=== PATIENT | female | born 1995 | race African-American/Black ===

== ENCOUNTER 2017-08-20 20:34 | Emergency (ER) | payer BC, OTHER ==
[2017-08-20 20:44] VITALS: BMI 34.3
--- NOTE | 2017-08-20 20:52 | PDOC ---
History of Present Illness - General History Source: Patient Exam Limitations: No Limitations - History of Present Illness Initial Comments: 08/20/17 21:47 The patient is a 22-year-old female with a significant past medical history of asthma, and presents to the emergency department with asthma exacerbation since yesterday. She reports difficulty breathing, coughing, chest tightness. She states her last episode of exacerbation was many years ago, but she uses a machine occasionally. She has never had prednisone treatment for her asthma. She denies any sick contacts. The patient denies chest pain, headache and dizziness. The patient denies fever , chills, nausea, vomit, diarrhea and constipation. The patient denies dysuria, frequency, urgency and hematuria. LMP: currently Allergies: NKDA Past Surgical History: None reported Social History: Former smoker (quit 1 month ago) PCP: Dr. Devan Aburto <Kathryn Albarran - Last Filed: 08/20/17 21:53> <Snehal Fofana - Last Filed: 08/21/17 00:47> - General Chief Complaint: Asthma Stated Complaint: S.O.B Time Seen by Provider: 08/20/17 20:52 Past History <Kathryn Albarran - Last Filed: 08/20/17 21:53> - Past Medical History Asthma: Yes - Surgical History Abdominal Surgery: Yes - Suicide/Smoking/Psychosocial Hx Smoking History: Never smoked Have you smoked in the past 12 months: No Information on smoking cessation initiated: No Hx Alcohol Use: No Drug/Substance Use Hx: No Substance Use Type: Alcohol <Snehal Fofana - Last Filed: 08/21/17 00:47> - Past Medical History Allergies/Adverse Reactions: Allergies Allergy/AdvReac Type Severity Reaction Status Date / Time No Known Allergies Allergy Verified 08/20/17 20:42 Home Medications: Ambulatory Orders Ibuprofen Oral Suspension [Motrin Oral Suspension -] 600 mg PO TID #105 ml 04/30 Loratadine [Claritin -] 10 mg PO DAILY #7 tablet 04/30/15 Azithromycin [Zithromax -] 250 mg PO DAILY #4 tablet 08/20/17 Review of Systems - Review of Systems Able to Perform ROS?: Yes Comments:: 08/20/17 21:47 GENERAL/CONSTITUTIONAL: No fever or chills. No weakness. HEAD, EYES, EARS, NOSE AND THROAT: No change in vision. No ear pain or discharge. No sore throat. CARDIOVASCULAR: No chest pain. RESPIRATORY: (+) Shortness of breath. (+) Cough. No hemoptysis. GASTROINTESTINAL: No nausea, vomiting, diarrhea or constipation. GENITOURINARY: No dysuria, frequency, or change in urination. MUSCULOSKELETAL: No joint or muscle swelling or pain. No neck or back pain. SKIN: No rash NEUROLOGIC: No headache, vertigo, loss of consciousness, or change in strength/ sensation. ENDOCRINE: No increased thirst. No abnormal weight change. HEMATOLOGIC/LYMPHATIC: No anemia, easy bleeding, or history of blood clots. ALLERGIC/IMMUNOLOGIC: No hives or skin allergy. <Kathryn Albarran - Last Filed: 08/20/17 21:53> *Physical Exam - Vital Signs Last Vital Signs Temp Pulse Resp BP Pulse Ox 99.3 F 97 H 20 144/74 97 08/20/17 20:42 08/20/17 20:42 08/20/17 20:42 08/20/17 20:42 08/20/17 20:42 - Physical Exam Comments: 08/20/17 21:53 GENERAL: Awake, alert, and fully oriented, in no acute distress. (+) Febrile. HEAD: No signs of trauma EYES: PERRLA, EOMI, sclera anicteric, conjunctiva clear ENT: Auricles normal inspection, hearing grossly normal, nares patent, oropharynx clear without exudates. Moist mucosa NECK: Normal ROM, supple, no lymphadenopathy, JVD, or masses LUNGS: (+) Wheezing in left lungs villanueva all throughout, right-sided patchy wheezing. No crackles HEART: Regular rate and rhythm, normal S1 and S2, no murmurs, rubs or gallops ABDOMEN: Soft, nontender, normoactive bowel sounds. No guarding, no rebound. No masses EXTREMITIES: Normal range of motion, no edema. No clubbing or cyanosis. No cords, erythema, or tenderness NEUROLOGICAL: Cranial nerves II through XII grossly intact. Normal speech, normal gait SKIN: Warm, Dry, normal turgor, no rashes or lesions noted. <Kathryn Albarran - Last Filed: 08/20/17 21:53> - Vital Signs Last Vital Signs Temp Pulse Resp BP Pulse Ox 99.3 F 97 H 20 144/74 97 08/20/17 20:42 08/20/17 20:42 08/20/17 20:42 08/20/17 20:42 08/20/17 20:42 <Snehal Fofana - Last Filed: 08/21/17 00:47> ED Treatment Course - Medications Given in the ED: ED Medications Discontinued Medications Generic Name Dose Route Start Last Admin Trade Name Porsha PRN Reason Stop Dose Admin Acetaminophen 650 mg 08/20/17 21:26 08/20/17 21:37 Tylenol - PO 08/20/17 21:27 650 mg ONCE ONE Administration Albuterol/Ipratropium 1 amp 08/20/17 21:36 08/20/17 21:05 Duoneb - NEB 08/20/17 21:37 1 amp ONCE ONE Administration Azithromycin 500 mg 08/20/17 21:26 08/20/17 21:37 Zithromax - PO 08/20/17 21:27 500 mg ONCE ONE Administration Dexamethasone 10 mg 08/20/17 21:26 08/20/17 21:37 Decadron Liquid - PO 08/20/17 21:27 10 mg ONCE ONE Administration <Kathryn Albarran - Last Filed: 08/20/17 21:53> Medical Decision Making - Medical Decision Making 08/21/17 00:44 Pt comes with cough and fever; she has asthma; CXR consistent with atypical pneumonia. I will treat with zithromax and decadron as well as duonebs; fever treated with tylenol. Pt is improved in the ER. <Snehal Fofana - Last Filed: 08/21/17 00:47> *DC/Admit/Observation/Transfer - Attestations Scribe Attestion: 08/20/17 21:48 Documentation prepared by Kathryn Albarran, acting as senior medical transcriptionist for Snehal Fofana MD. <Kathryn Albarran - Last Filed: 08/20/17 21:53> - Discharge Dispostion Admit: No <Snehal Fofana - Last Filed: 08/21/17 00:47> Diagnosis at time of Disposition: Asthma exacerbation, Atypical pneumonia - Discharge Dispostion Disposition: HOME Condition at time of disposition: Improved - Prescriptions Prescriptions: Azithromycin [Zithromax -] 250 mg PO DAILY #4 tablet - Referrals Referrals: Devan Aburto [Primary Care Provider] - - Patient Instructions Printed Discharge Instructions: Asthma -- Adult, DI for Pneumonia -- Adult - Post Discharge Activity Forms/Work/School Notes: Back to Work
[2017-08-20] MEDS ORDERED: ALBUTEROL SO4 2.5/IPRATROPIUM 0.5 INH SOL 3 ML VIAL.NEB. NEB ONE ×2 (21:09→21:36)
[2017-08-20] MEDS ORDERED: AZITHROMYCIN 250 MG TABLET PO ONE (21:26)
[2017-08-20] MEDS ORDERED: ACETAMINOPHEN 325 MG TABLET (FP) PO ONE (21:26)
[2017-08-20] MEDS ORDERED: DEXAMETHASONE LIQUID 0.5 MG/5 ML 240 ML BULK BOTTLE PO ONE (21:26)
[2017-08-20] MEDS ORDERED: DEXAMETHASONE SOD PHOSPHATE 10 MG/1 ML VIAL ONE (21:32)
[2017-08-20] MEDS ORDERED: AZITHROMYCIN 250 MG TABLET ONE (21:32)
[2017-08-20] MEDS ORDERED: ACETAMINOPHEN 325 MG TABLET (FP) ONE (21:32)
[2017-08-20 22:42] VITALS: BP 155/87; PULSE 92; TEMP 98.8
== END 2017-08-20 22:39 | disposition home or self-care (01) ==
LOC: JER 20:34
PROC: 3E0F7GC Introduction of Other Therapeutic Substance into Respiratory Tract, Via Natural or Artificial Opening (ICD-10-PCS; principal; 2017-08-20)
DX: J45.901 Unspecified asthma with (acute) exacerbation (principal); J18.8 Other pneumonia, unspecified organism
CPT/HCPCS: 71020-TC; 99282-25

== ENCOUNTER 2018-02-09 15:37 | Emergency (ER) | payer OTHER ==
[2018-02-09 15:44] VITALS: BP 137/85; PULSE 100; TEMP 98.1; BMI 33.3
[2018-02-09] MEDS ORDERED: ALBUTEROL SO4 2.5/IPRATROPIUM 0.5 INH SOL 3 ML VIAL.NEB. NEB ONE ×2 (15:44→16:21)
--- NOTE | 2018-02-09 15:45 | PDOC ---
Rapid Medical Evaluation Time Seen by Provider: 02/09/18 15:41 Medical Evaluation: Allergies Allergy/AdvReac Type Severity Reaction Status Date / Time No Known Allergies Allergy Verified 02/09/18 15:41 02/09/18 15:41 The patient presents with a chief complaint of: Unable to breath since yesterday. Worse today. Hx of asthma, using home inhaler with no relief. No recent illness or fevers, no sick contacts I have performed a brief in-person evaluation of this patient; Pertinent physical exam findings: ambulatory, in mild respiratory distress, audible expiratory wheezing. auscultation: expiratory wheezing in all lung villanueva I have ordered the following: Duoneb, cxr, urine preg The patient will proceed to the ED for further evaluation.
--- NOTE | 2018-02-09 16:18 | PDOC ---
History of Present Illness - General Chief Complaint: Asthma Stated Complaint: SOB (ASTHMA) Time Seen by Provider: 02/09/18 15:41 History Source: Patient Exam Limitations: No Limitations - History of Present Illness Initial Comments: 02/09/18 16:58 Came for evaluation of tightness and cough. Started this morning when she woke up and denies fever, ear or throat pain, Timing/Duration: reports: just prior to arrival Past History - Travel Traveled outside of the country in the last 30 days: No Close contact w/someone who was outside of country & ill: No - Past Medical History Allergies/Adverse Reactions: Allergies Allergy/AdvReac Type Severity Reaction Status Date / Time Fish Containing Products Allergy Verified 02/09/18 16:10 sea food Allergy Uncoded 02/09/18 15:44 Home Medications: Ambulatory Orders Albuterol Sulfate Inhaler - [Ventolin HFA Inhaler -] 1 - 2 inh PO Q4H #1 inhaler 02/09/18 Albuterol Sulfate Inhaler - [Ventolin Hfa Inhaler -] 1 - 2 inh PO QID 02/09/18 Fluticasone Prop 0.05% Nasal [Flonase -] 1 - 2 spray NS BID #1 spray.pump Asthma: Yes COPD: No - Surgical History Abdominal Surgery: Yes - Suicide/Smoking/Psychosocial Hx Smoking History: Never smoked Have you smoked in the past 12 months: No Information on smoking cessation initiated: No Hx Alcohol Use: No Drug/Substance Use Hx: No Substance Use Type: Alcohol Respiratory Specific PMHX - Complaint Specific PMHX Bronchitis: No Pneumonia: No Review of Systems - Review of Systems Able to Perform ROS?: Yes Is the patient limited Tamaz[place] proficient: Yes Constitutional: Yes: Symptoms Reported, See HPI, Malaise. No: Chills, Fever HEENTM: Yes: Symptoms Reported, See HPI, Nose Congestion. No: Difficulty Swallowing Respiratory: Yes: Symptoms reported, See HPI, Cough, Wheezing ABD/GI: Yes: See HPI, Nausea. No: Symptoms Reported Musculoskeletal: No: Symptoms Reported All Other Systems: Reviewed and Negative *Physical Exam - Vital Signs Last Vital Signs Temp Pulse Resp BP Pulse Ox 98.1 F 100 H 24 137/85 100 02/09/18 15:42 02/09/18 15:42 02/09/18 15:42 02/09/18 15:42 02/09/18 15:42 - Physical Exam General Appearance: Yes: Nourished, Appropriately Dressed, Apparent Distress, Mild Distress HEENT: positive: LIZ, Normal ENT Inspection, TMs Normal, Pharynx Normal, Nasal Congestion, Rhinorrhea Neck: positive: Supple. negative: Tender Respiratory/Chest: positive: Wheezing (tight inspiratory and expiratory breath sounds, ). negative: Lungs Clear, Normal Breath Sounds Cardiovascular: positive: Regular Rate Gastrointestinal/Abdominal: positive: Soft. negative: Tender Musculoskeletal: negative: Normal Inspection Extremity: positive: Normal Capillary Refill, Normal Inspection, Tender Integumentary: positive: Normal Color, Dry, Pale Neurologic: positive: granite cutter II-XII NML intact, Fully Oriented, Alert, Normal Mood/ Affect, Normal Response, Motor Strength 03/17 ED Treatment Course - ADDITIONAL ORDERS Additional order review: Laboratory Results 02/09/18 15:58 Urine HCG, Qual Positive - Medications Given in the ED: ED Medications Discontinued Medications Generic Name Dose Route Start Last Admin Trade Name Freq PRN Reason Stop Dose Admin Albuterol/Ipratropium 1 amp 02/09/18 15:44 02/09/18 15:46 Duoneb - NEB 02/09/18 15:45 1 amp ONCE ONE Administration Progress Note - Progress Note Progress Note: Newly , woke up this morning with asthma exacerbation. States denies fever, nasal drainage here pain or sore throat pain. States is uncertain as to cause of this asthma exacerbation but feels shortness of breath and tightness. *DC/Admit/Observation/Transfer Diagnosis at time of Disposition: Asthma exacerbation Qualifiers: Asthma severity: mild Asthma persistence: intermittent Qualified Code(s): J45.21 - Mild intermittent asthma with (acute) exacerbation - Discharge Dispostion Disposition: HOME Condition at time of disposition: Stable Admit: No - Prescriptions Prescriptions: Fluticasone Prop 0.05% Nasal [Flonase -] 1 - 2 spray NS BID #1 spray.pump - Referrals - Patient Instructions Printed Discharge Instructions: Asthma -- Adult Additional Instructions: Rest, drink lots of fluids: Teas, water, soups, Pedialyte Saltwater gargles Steamy showers/seem to face break up mucus Avoid contact with others until fevers and cough resolved Lots of handwashing and good hygiene Continue [id number] medications for symptomatic relief Tylenol or Motrin for fever and pain Continue albuterol nebulizers every 4-6 hours for the next 2 days then as needed for continued cough Flonase 2 puffs twice a day for 4 days then as needed Followup with private physician in one to 2 days Return to emergency department / pediatric hospital for worsened symptoms, fevers, dehydration - Post Discharge Activity Forms/Work/School Notes: Back to Work
== END 2018-02-09 17:04 | disposition home or self-care (01) ==
LOC: JERFT 15:37
PROC: 3E0F7GC Introduction of Other Therapeutic Substance into Respiratory Tract, Via Natural or Artificial Opening (ICD-10-PCS; principal; 2018-02-09)
PROC: 3E0F7GC Introduction of Other Therapeutic Substance into Respiratory Tract, Via Natural or Artificial Opening (ICD-10-PCS; 2018-02-09)
DX: J45.21 Mild intermittent asthma with (acute) exacerbation (principal)
CPT/HCPCS: 71046-TC-FY; 84703; 94640; 99281-25

== ENCOUNTER 2018-09-07 09:23 | Emergency (ER) | payer OTHER ==
[2018-09-07] MEDS ORDERED: DEXAMETHASONE SOD PHOSPHATE 10 MG/1 ML VIAL ONE (09:43)
[2018-09-07] MEDS ORDERED: ALBUTEROL SO4 2.5/IPRATROPIUM 0.5 INH SOL 3 ML VIAL.NEB. NEB ONE (09:43)
--- NOTE | 2018-09-07 09:50 | PDOC ---
History of Present Illness - General Chief Complaint: Asthma Stated Complaint: ASTHMA Time Seen by Provider: 09/07/18 09:37 History Source: Patient Exam Limitations: No Limitations - History of Present Illness Initial Comments: 09/07/18 09:50 23y F hx of asthma (no recent hospitalizations, on albuterol at home, typically uses 3x week) presents with cough/sob. The pt endorses having some dry, nonproductive cough on monday. Cough was mild, but sob/chest tightnes worsened last night. no significant improvement with home nebs. No fever/chills, no sputum prudution on cough, no sore throat, congestion, abd pain, n/v, diaprhoesis, palptiations, dizziness. Per EMS. pt received 2 combivents and 10mg of decadron. PMD no recent travel, hemoptysis, leg swelling. Past History - Past Medical History Allergies/Adverse Reactions: Allergies Allergy/AdvReac Type Severity Reaction Status Date / Time Fish Containing Products Allergy Verified 02/09/18 16:10 sea food Allergy Uncoded 02/09/18 15:44 Home Medications: Ambulatory Orders Albuterol Sulfate Inhaler - [Ventolin HFA Inhaler -] 1 - 2 inh PO Q4H #1 inhaler 02/09/18 Albuterol 0.083% Nebulizer Gi [Ventolin 0.083% Nebulizer Soln -] 1 neb NEB Q4H PRN #30 vial 09/07/18 Albuterol 0.083% Nebulizer Gi [Ventolin 0.083%] 1 neb NEB Q4H PRN 09/07/18 Albuterol Sulfate Inhaler - [Ventolin HFA Inhaler -] 1 - 2 inh PO Q4H PRN #1 inhaler 09/07/18 Asthma: Yes COPD: No - Surgical History Abdominal Surgery: Yes - Suicide/Smoking/Psychosocial Hx Smoking History: Never smoked Have you smoked in the past 12 months: No Hx Alcohol Use: No Drug/Substance Use Hx: No Substance Use Type: Alcohol Respiratory Specific PMHX - Complaint Specific PMHX Bronchitis: No Pneumonia: No Review of Systems - Review of Systems Able to Perform ROS?: Yes Comments:: 09/07/18 10:19 Constitutional - no reported Fever, Chills, HEENT: no reported vision changes, sore throat Respiratory: + cough, no reported sob, hemoptysis Cardiac: no reported chest pain, palpitations, light headedness, leg swelling Abd/GI: no reported abd pain, nausea, vomiting, blood per rectum, melena, diarrhea : no reported dysuria, frequency, discharge Musculskelatal - no reported back pain, joint swelling skin - no reported bruising, erythema, rash neurological: no reported headache, numbness, focal weakness, tingling, ataxia, hematologic: no reported easy bruising, easy bleeding *Physical Exam - Physical Exam Comments: 09/07/18 10:19 GENERAL: The patient is awake, alert, and fully oriented, Nontoxic - in no acute distress. HEAD: Normocephalic, atraumatic. EYES: extraocular movements intact, sclera anicteric, conjunctiva clear. ENT: Normal voice, Moist mucous membranes. NECK: Normal range of motion, supple LUNGS: Diminished breath sounds, scattered wheezing bilaterally, he can complete sentences come in no acute respiratory distress HEART: Regular rate and rhythm, normal S1 and S2 without murmur, rub or gallop. ABDOMEN: Soft, nontender, normoactive bowel sounds. No guarding, no rebound. . No CVA tenderness EXTREMITIES: Normal range of motion, no edema. No clubbing or cyanosis. No cords, erythema, or tenderness. NEUROLOGICAL: No facial assymetry, Normal speech, PSYCH: Normal mood, normal affect. SKIN: Warm, Dry, normal turgor, Medical Decision Making - Medical Decision Making 09/07/18 11:07 Suspect asthma exacerbation secondary to viral syndrome. No clinical signs or symptoms suggestive of pneumonia or pulmonary embolism She is feeling improved after nebulizers, patient was also status post Decadron by EMS. The patient is was ambulating the length of the ED without any shortness of breath, she remained satting at 98-100% on room air after ambulation. On repeat pulmonary exam she still has minimal wheezing however she has good lung excursion and great air movement. We'll discharge patient with albuterol and PMD follow-up. return precautions were discussed I discussed the physical exam findings, ancillary test results and final diagnoses with the patient. I answered all of the patient's questions. The patient was satisfied with the care received and felt comfortable with the discharge plan and treatment plan. The patient will call their primary care physician within 24 hours to arrange follow-up and will return to the Emergency Department with any new, persistent or worsening symptoms. *DC/Admit/Observation/Transfer Diagnosis at time of Disposition: Asthma exacerbation Qualifiers: Asthma severity: mild Asthma persistence: unspecified Qualified Code(s): J45.901 - Unspecified asthma with (acute) exacerbation - Discharge Dispostion Disposition: HOME Condition at time of disposition: Improved Decision to Admit order: No - Referrals Referrals: [facility] [Provider Group] - Patient Instructions Printed Discharge Instructions: Asthma -- Adult Additional Instructions: Return to the emergency department immediately with ANY new, persistent or worsening symptoms. You MUST call and follow up with your doctor tomorrow for further evaluation of your symptoms. Results were discussed with you. Please make sure your doctor reviews the results of your emergency evaluation. If you had any xrays during your visit, it was read preliminarily by myself, a Radiologist will review it and if there are any additional findings we will call you. Print Language: TELUGU - Post Discharge Activity
[2018-09-07] MEDS ORDERED: ALBUTEROL SO4 0.5 % INH SOLN 2.5 MG/0.5 ML VIAL.NEB. NEB ONE (09:52)
[2018-09-07 10:05] VITALS: TEMP 97.4; BMI 32.3
[2018-09-07] MEDS ORDERED: ALBUTEROL SO4 0.083% IH SOL 2.5 MG/3 ML VIAL.NEB. NEB ONE (10:10)
[2018-09-07 11:44] VITALS: BP 128/78; PULSE 108
== END 2018-09-07 11:30 | disposition home or self-care (01) ==
LOC: JER 09:23
PROC: 3E0F7GC Introduction of Other Therapeutic Substance into Respiratory Tract, Via Natural or Artificial Opening (ICD-10-PCS; principal; 2018-09-07)
DX: J45.901 Unspecified asthma with (acute) exacerbation (principal)
CPT/HCPCS: 94640; 99282-25

== ENCOUNTER 2018-11-23 03:46 | Emergency (ER) | payer OTHER ==
[2018-11-23 04:04] VITALS: TEMP 98.6; BMI 32.3
[2018-11-23] MEDS ORDERED: predniSONE 20 MG TABLET (UD) PO ONE (04:15)
[2018-11-23] MEDS ORDERED: ALBUTEROL SO4 2.5/IPRATROPIUM 0.5 INH SOL 3 ML VIAL.NEB. NEB ONE (04:19)
[2018-11-23] MEDS ORDERED: predniSONE 20 MG TABLET (UD) ONE (04:25)
[2018-11-23] MEDS: ALBUTEROL SO4 2.5/IPRATROPIUM 0.5 INH SOL 3 ML VIAL.NEB. NEB SCH ×2 (04:30→04:54)
--- NOTE | 2018-11-23 05:09 | PDOC ---
History of Present Illness - General Chief Complaint: Asthma Stated Complaint: ASTHMA Time Seen by Provider: 11/23/18 03:57 History Source: Patient Exam Limitations: No Limitations Past History - Past Medical History Allergies/Adverse Reactions: Allergies Allergy/AdvReac Type Severity Reaction Status Date / Time Fish Containing Products Allergy Verified 11/23/18 04:02 sea food Allergy Uncoded 11/23/18 04:02 Home Medications: Ambulatory Orders Albuterol Sulfate Inhaler - [Ventolin HFA Inhaler -] 1 - 2 inh PO Q4H #1 inhaler 02/09/18 Albuterol 0.083% Nebulizer Gi [Ventolin 0.083% Nebulizer Soln -] 1 neb NEB Q4H PRN #30 vial 09/07/18 Albuterol 0.083% Nebulizer Gi [Ventolin 0.083%] 1 neb NEB Q4H PRN 09/07/18 Albuterol Sulfate Inhaler - [Ventolin HFA Inhaler -] 1 - 2 inh PO Q4H PRN #1 inhaler 09/07/18 Albuterol 0.083% Nebulizer Gi [Ventolin 0.083% Nebulizer Soln -] 1 neb NEB Q4H #30 vial 11/23/18 Prednisone [Deltasone] 40 mg PO DAILY #10 tablet 11/23/18 Asthma: Yes COPD: No CHF: No - Surgical History Abdominal Surgery: Yes - Immunization History Immunization Up to Date: Yes - Suicide/Smoking/Psychosocial Hx Smoking History: Never smoked Have you smoked in the past 12 months: No If you are a former smoker, when did you quit?: X2 YEARS Information on smoking cessation initiated: No Hx Alcohol Use: No Drug/Substance Use Hx: No Substance Use Type: Alcohol Respiratory Specific PMHX - Complaint Specific PMHX Bronchitis: No Pneumonia: No *Physical Exam - Vital Signs Last Vital Signs Temp Pulse Resp BP Pulse Ox 98.6 F 117 H 28 H 110/66 94 L 11/23/18 04:02 11/23/18 04:02 11/23/18 04:02 11/23/18 04:02 11/23/18 04:02 - Physical Exam General Appearance: No: Apparent Distress Respiratory/Chest: positive: Wheezing (diffuse B/L). negative: Respiratory Distress, Accessory Muscle Use Cardiovascular: positive: Regular Rhythm Gastrointestinal/Abdominal: positive: Soft. negative: Tender Integumentary: positive: Normal Color Neurologic: positive: Fully Oriented, Alert, Normal Mood/Affect Moderate Sedation - Procedure Monitoring Vital Signs: Procedure Monitoring Vital Signs Temperature 98.6 F 11/23/18 04:02 Pulse Rate 117 H 11/23/18 04:02 Respiratory Rate 28 H 11/23/18 04:02 Blood Pressure 110/66 11/23/18 04:02 O2 Sat by Pulse Oximetry (%) 94 L 11/23/18 04:02 ED Treatment Course - Medications Given in the ED: ED Medications Discontinued Medications Generic Name Dose Route Start Last Admin Trade Name Freq PRN Reason Stop Dose Admin Albuterol/Ipratropium 1 amp 11/23/18 04:15 11/23/18 04:54 Duoneb - NEB 11/23/18 04:46 1 amp Q15M ANTONIO Administration Prednisone 60 mg 11/23/18 04:15 11/23/18 04:30 Deltasone - PO 11/23/18 04:16 60 mg ONCE ONE Administration Medical Decision Making - Medical Decision Making 23 y/o F hx of asthma (never intubated, hospitalized only as child) presents with SOB, chest tightness and wheezing x 3 days. Symptoms feel like her typical asthma. Patient was using her nebulizer but ran out of medication yesterday. Mentions change in weather usually precipitates her asthma. Denies fever, URI sxs, abd pain, n/v, swelling of extremities. Asthma exacerbation Patient given duonebs x3 and Prednisone; patient with marked improvement in wheezing after treatment Patient feeling better Stable for d/c 11/23/18 05:09 *DC/Admit/Observation/Transfer Diagnosis at time of Disposition: Asthma exacerbation Qualifiers: Asthma severity: unspecified severity Asthma persistence: unspecified Qualified Code(s): J45.901 - Unspecified asthma with (acute) exacerbation - Discharge Dispostion Disposition: HOME Condition at time of disposition: Improved Decision to Admit order: No - Prescriptions Prescriptions: Albuterol 0.083% Nebulizer Gi [Ventolin 0.083% Nebulizer Soln -] 1 neb NEB Q4H #30 vial Prednisone [Deltasone] 40 mg PO DAILY #10 tablet - Referrals - Patient Instructions Printed Discharge Instructions: Asthma -- Adult Additional Instructions: Thank you for choosing [facility]. It was a pleasure taking care of you. Use your albuterol nebulizer as needed to help with your asthma Take Prednisone daily as prescribed Follow-up with your PCP in 2-3 days. Return to the Emergency Department if your symptoms worsen or persist or have other concerning symptoms. - Post Discharge Activity
[2018-11-23 05:24] VITALS: BP 110/68; PULSE 66
== END 2018-11-23 05:23 | disposition home or self-care (01) ==
LOC: JER 03:46
PROC: 3E0F7GC Introduction of Other Therapeutic Substance into Respiratory Tract, Via Natural or Artificial Opening (ICD-10-PCS; principal; 2018-11-23)
DX: J45.901 Unspecified asthma with (acute) exacerbation (principal)
CPT/HCPCS: 99281-25

== ENCOUNTER 2018-12-21 07:58 | Emergency (ER) | payer OTHER ==
[2018-12-21 08:09] VITALS: TEMP 98.4; BMI 32.3
[2018-12-21] MEDS ORDERED: ALBUTEROL SO4 2.5/IPRATROPIUM 0.5 INH SOL 3 ML VIAL.NEB. NEB ONE ×2 (08:49→08:52)
[2018-12-21] MEDS ORDERED: predniSONE 20 MG TABLET (UD) PO ONE (08:49)
[2018-12-21] MEDS ORDERED: predniSONE 20 MG TABLET (UD) ONE (08:51)
--- NOTE | 2018-12-21 08:55 | PDOC ---
History of Present Illness - General Chief Complaint: Asthma Stated Complaint: ASTHMA Time Seen by Provider: 12/21/18 08:08 History Source: Patient Exam Limitations: No Limitations - History of Present Illness Initial Comments: Patient is a 23 y/o F currently 5 mos p/w asthma attack since 1 am. Was previously evaluated in ED for asthma in November, responded well to nebulizers and steroids. No h/o hospitalizations or intubations. Symptoms are typical for her asthma: chest tightness, wheezing, mild non-productive cough. No URI symptoms or sick contact, however Pt reports weather changes tend to induce asthma exacerbations. Received 4 albuterol nebs from EMS, reports improvement. On arrival HR 128, BP 158/69. 12/21/18 08:50 Past History - Travel Traveled outside of the country in the last 30 days: No Close contact w/someone who was outside of country & ill: No - Past Medical History Allergies/Adverse Reactions: Allergies Allergy/AdvReac Type Severity Reaction Status Date / Time Fish Containing Products Allergy Verified 11/23/18 04:02 sea food Allergy Uncoded 11/23/18 04:02 Home Medications: Ambulatory Orders Albuterol 0.083% Nebulizer Gi [Ventolin 0.083%] 1 neb NEB Q4H PRN 09/07/18 Albuterol Sulfate Inhaler - [Ventolin HFA Inhaler -] 1 - 2 inh PO Q4H 4 Days #1 inhaler 12/21/18 Inhaler, Assist Devices [Space Chamber Plus] 1 each MC Q4H #1 spacer 12/21/18 predniSONE [Deltasone -] 40 mg PO DAILY #4 tablet 12/21/18 Asthma: Yes COPD: No CHF: No - Surgical History Abdominal Surgery: Yes Neurologic Surgery: No - Immunization History Immunization Up to Date: Yes - Suicide/Smoking/Psychosocial Hx Smoking History: Former smoker Have you smoked in the past 12 months: No If you are a former smoker, when did you quit?: X2 YEARS Information on smoking cessation initiated: No Hx Alcohol Use: No Drug/Substance Use Hx: No Substance Use Type: Alcohol Review of Systems - Review of Systems Comments:: As per HPI. 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 Will give duonebs x 3 + 60mg PO prednisone and reassess. 12/21/18 08:57 Patient feeling better, saturating 99% on RA, pulse 108 (s/p 7 total doses of nebulizers), still significant wheezing on resp exam. 12/21/18 10:46 Providing 1 further albuterol neb, then will discharge w/ Rx for standing albuterol q4h and 4 days prednisone w/ f/u instructions. 12/21/18 11:01 Continues to improve, wheezing improved. Will send Rxs and dc. 12/21/18 11:35 *DC/Admit/Observation/Transfer Diagnosis at time of Disposition: Asthma exacerbation Qualifiers: Asthma severity: moderate Asthma persistence: unspecified Qualified Code(s): J45.901 - Unspecified asthma with (acute) exacerbation - Discharge Dispostion Disposition: HOME Condition at time of disposition: Stable - Referrals Referrals: Alek Aburto MD [Primary Care Provider] - - Patient Instructions Printed Discharge Instructions: Asthma -- Adult Additional Instructions: You were evaluated and treated for asthma exacerbation. Prescriptions for albuterol and prednisone have been sent to your pharmacy, please take these medications exactly as directed. Please follow up with your primary medical doctor at your earliest opportunity. If you experience worsening shortness of breath, wheezing, chest tightness, chest pain, or any other new or concerning symptom, please return to the Emergency Department. - Post Discharge Activity
--- NOTE | 2018-12-21 09:18 | PDOC ---
Attending Attestation - Resident Resident Name: Romero Kaiser - ED Attending Attestation I have performed the following: I have examined & evaluated the patient, The case was reviewed & discussed with the resident, I agree w/resident's findings & plan, Exceptions are as noted - HPI HPI: 12/21/18 10:13 Reviewed Residents HPI - Physicial Exam PE: 12/21/18 10:13 Reviewed Residents PE - Medical Decision Making 12/21/18 10:14 23 years old 5 months presents to the ED with asthma exacerbation. No viral URI symptoms well-appearing no apparent distress Has tried nebulizer treatments at home with no significant improvement we'll treat with dual nebs here in the emergency department by mouth prednisone observe and reassess. 12/21/18 14:08 Reevaluation: Patient feels much better after steroids and nebs Repeat respiratory evaluation patient with no accessory muscle use no tachypnea very mild persistent end expiratory reason the patient states this is normal for her after these exacerbations Patient states she will follow-up with her primary care provider she is stable to return home she will continue every 4 hour treatments at home and a four-day course of prednisone She'll return to the ED for any severe worsening symptoms or for any concerns. Findings, the need for follow-up and strict return instructions discussed patient.
[2018-12-21] MEDS ORDERED: ALBUTEROL SO4 0.083% IH SOL 2.5 MG/3 ML VIAL.NEB. NEB ONE ×2 (10:53→11:04)
[2018-12-21 12:06] VITALS: BP 122/48; PULSE 108
== END 2018-12-21 12:07 | disposition home or self-care (01) ==
LOC: JER 07:58
PROC: 3E0F7GC Introduction of Other Therapeutic Substance into Respiratory Tract, Via Natural or Artificial Opening (ICD-10-PCS; principal; 2018-12-21)
PROC: 3E0F7GC Introduction of Other Therapeutic Substance into Respiratory Tract, Via Natural or Artificial Opening (ICD-10-PCS; 2018-12-21)
DX: O26.892 Other specified pregnancy related conditions, second trimester (principal); O99.512 Diseases of the respiratory system complicating pregnancy, second trimester; J45.901 Unspecified asthma with (acute) exacerbation; Z3A.20 20 weeks gestation of pregnancy
CPT/HCPCS: 99283-25

== ENCOUNTER 2019-01-11 10:05 | Inpatient (IN) | payer OTHER ==
--- NOTE | 2019-01-11 10:13 | PDOC ---
History of Present Illness - General History Source: Patient Exam Limitations: No Limitations - History of Present Illness Initial Comments: 01/11/19 10:23 The patient is a 23 year old female, currently 6 mos , with a significant past medical history of asthma, who presents to the emergency department with acute onset of shortness of breath since about 3-4 hours ago today. The patient states she went outside yesterday and attributes that as a possible trigger for her asthma. She reports using her albuterol inhaler and nebulizer treatment prior to arrival without any relief of her symptoms. The patient denies chest pain, headache and dizziness. The patient denies fever , chills, nausea, vomit, diarrhea and constipation. The patient denies dysuria, frequency, urgency and hematuria. Allergies: NKDA Past Surgical History: None reported Social History: Former smoker (cessation 1 year ago) PCP: Dr. Devan Aburto Commissioned Fire Officer: <Rylie Haley - Last Filed: 01/11/19 10:23> <Twila Pedro - Last Filed: 01/13/19 09:46> - General Chief Complaint: Asthma Stated Complaint: Asthma Time Seen by Provider: 01/11/19 10:12 Past History <Rylie Haley - Last Filed: 01/11/19 10:23> - Past Medical History Asthma: Yes COPD: No CHF: No - Surgical History Abdominal Surgery: Yes Neurologic Surgery: No - Immunization History Immunization Up to Date: Yes - Suicide/Smoking/Psychosocial Hx Smoking History: Former smoker Have you smoked in the past 12 months: No If you are a former smoker, when did you quit?: X2 YEARS Hx Alcohol Use: No Drug/Substance Use Hx: No Substance Use Type: Alcohol <Twila Pedro - Last Filed: 01/13/19 09:46> - Past Medical History Allergies/Adverse Reactions: Allergies Allergy/AdvReac Type Severity Reaction Status Date / Time Fish Containing Products Allergy Verified 01/11/19 10:19 sea food Allergy Uncoded 01/11/19 10:19 Home Medications: Ambulatory Orders Albuterol 0.083% Nebulizer Gi [Ventolin 0.083%] 1 neb NEB Q4H PRN 09/07/18 Albuterol Sulfate Inhaler - [Ventolin HFA Inhaler -] 1 - 2 inh PO Q4H 4 Days #1 inhaler 12/21/18 Vit 108/Iron/Folic AC [ One Tablet] 1 tab PO DAILY 01/11/19 Review of Systems - Review of Systems Able to Perform ROS?: Yes Comments:: 01/11/19 10:23 GENERAL/CONSTITUTIONAL: No fever or chills. No weakness. HEAD, EYES, EARS, NOSE AND THROAT: No change in vision. No ear pain or discharge. No sore throat. CARDIOVASCULAR: No chest pain or shortness of breath. RESPIRATORY: (+) SOB. No cough, wheezing, or hemoptysis. GASTROINTESTINAL: No nausea, vomiting, diarrhea or constipation. GENITOURINARY: No dysuria, frequency, or change in urination. MUSCULOSKELETAL: No joint or muscle swelling or pain. No neck or back pain. SKIN: No rash NEUROLOGIC: No headache, vertigo, loss of consciousness, or change in strength/ sensation. ENDOCRINE: No increased thirst. No abnormal weight change. HEMATOLOGIC/LYMPHATIC: No anemia, easy bleeding, or history of blood clots. ALLERGIC/IMMUNOLOGIC: No hives or skin allergy. <Rylie Haley - Last Filed: 01/11/19 10:23> *Physical Exam - Vital Signs Last Vital Signs Temp Pulse Resp BP Pulse Ox 97.2 F L 134 H 24 H 112/69 100 01/11/19 10:05 01/11/19 10:05 01/11/19 10:05 01/11/19 10:05 01/11/19 10:05 <Rylie Haley - Last Filed: 01/11/19 10:23> - Physical Exam Comments: GENERAL: Awake, alert, and oriented, +resp distress HEAD: No signs of trauma EYES: PERRLA, EOMI, sclera anicteric, conjunctiva clear ENT: Auricles normal inspection, hearing grossly normal, nares patent, oropharynx clear without exudates. Moist mucosa NECK: Normal ROM, supple, no lymphadenopathy, JVD, or masses LUNGS: Tachypneic, diffuse exp wheezes B/L, speaking 3 word sentences HEART: Regular rate and rhythm, normal S1 and S2, no murmurs, rubs or gallops ABDOMEN: Soft, nontender, normoactive bowel sounds. No guarding, no rebound. No masses EXTREMITIES: Normal range of motion, no edema. No clubbing or cyanosis. No cords, erythema, or tenderness NEUROLOGICAL: Cranial nerves II through XII grossly intact. Normal speech, normal gait. Motor and sensation intact SKIN: Warm, Dry, normal turgor, no rashes or lesions noted. <Twila Pedro - Last Filed: 01/13/19 09:46> Moderate Sedation - Procedure Monitoring Vital Signs: Procedure Monitoring Vital Signs Temperature 97.2 F L 01/11/19 10:05 Pulse Rate 134 H 01/11/19 10:05 Respiratory Rate 24 H 01/11/19 10:05 Blood Pressure 112/69 01/11/19 10:05 O2 Sat by Pulse Oximetry (%) 100 01/11/19 10:05 <Rylie Haley - Last Filed: 01/11/19 10:23> Heart Score/ECG Review - ECG Impressions Comment:: EKG read 10:52- Sinus tach 124, no acute ST/T changes <Twila Pedro - Last Filed: 01/13/19 09:46> ED Treatment Course - LABORATORY CBC & Chemistry Diagram: 01/13/19 05:30 01/13/19 05:30 <Twila Pedro - Last Filed: 01/13/19 09:46> Medical Decision Making - Critical Care Time Total Critical Care Time (minutes): 35 Critical Care Statement: The care of this patient involved high complexity decision making to prevent further life threatening deterioration of the patient 's condition and/or to evaluate & treat vital organ system(s) failure or risk of failure. - Medical Decision Making 01/11/19 14:01 D/w ICU, recommended starting her on BiPAP, as she is still wheezing despite nebs, steroids, and magnesium. 01/11/19 14:37 Pt speaking more comfortably on the BiPAP, able to speak in sentences. Case d/w Dr. Austin at bedside, patient accepted to ICU. I will page Dr. Murphy for admission to her service. <Twila Pedro - Last Filed: 01/13/19 09:46> *DC/Admit/Observation/Transfer - Attestations Scribe Attestion: 01/11/19 10:23 Documentation prepared by Rylie Haley, acting as medical services coordinator for Twila Pedro MD <Rylie Haley - Last Filed: 01/11/19 10:23> - Discharge Dispostion Decision to Admit order: Yes <Twila Pedro - Last Filed: 01/13/19 09:46> Diagnosis at time of Disposition: Asthma exacerbation Qualifiers: Asthma severity: unspecified severity Asthma persistence: unspecified Qualified Code(s): J45.901 - Unspecified asthma with (acute) exacerbation - Discharge Dispostion Condition at time of disposition: Guarded
[2019-01-11] MEDS ORDERED: DEXAMETHASONE SOD PHOSPHATE 10 MG/1 ML VIAL ONE (10:17)
[2019-01-11 10:19] VITALS: BMI 32.3
[2019-01-11] MEDS ORDERED: SODIUM CHLORIDE 1,000 ML IV STA (10:21)
[2019-01-11] MEDS: ALBUTEROL SO4 2.5/IPRATROPIUM 0.5 INH SOL 3 ML VIAL.NEB. NEB SCH ×4 (10:31→11:15)
[2019-01-11 10:47] LABS: BASO % 0.5 % (0-2.0); EOS % 6.6 % (0-4.5); HEMATOCRIT 37.8 % (32.4-45.2); HEMOGLOBIN 13.1 GM/dL (10.7-15.3); LYMPH % 17.2 % (8-40); MCH 30.6 pg (25.7-33.7); MCHC 34.8 g/dl (32.0-36.0); MEAN PLT VOLUME 9.4 fl (7.5-11.1); MONO % 7.4 % (3.8-10.2); NEUT % 68.3 % (42.8-82.8); PLATELET COUNT 199 K/MM3 (134-434); RBC 4.29 M/mm3 (3.60-5.2); RDW 13.3 % (11.6-15.6); WHITE BLOOD COUNT 10.8 K/mm3 (4.0-10.0)
[2019-01-11 11:14] LABS: ALBUMIN 3.2 g/dl (3.4-5.0); ALK PHOS 65 U/L (45-117); ANION GAP 7 MMOL/L (8-16); BILIRUBIN,TOTAL 0.2 mg/dL (0.2-1); BLOOD UREA NITROGEN 5 mg/dL (7-18); CALCIUM 8.1 mg/dL (8.5-10.1); CHLORIDE 108 mmol/L (98-107); CO2 23 mmol/L (21-32); CREATININE 0.4 mg/dL (0.55-1.3); GLUCOSE,RANDOM 88 mg/dL (74-106); POTASSIUM 3.6 mmol/L (3.5-5.1); SGOT/AST 12 U/L (15-37); SGPT/ALT 14 U/L (13-61); SODIUM 138 mmol/L (136-145); TOT PROT 6.9 g/dl (6.4-8.2)
[2019-01-11] MEDS ORDERED: MAGNESIUM SULF 50% (8.12 MEQ/2 ML-1 GM VIAL) IVPB ONE (12:23)
[2019-01-11] MEDS ORDERED: DEXTROSE 5%-LACTATED RINGERS 1,000 ML IV SCH (12:30)
[2019-01-11] MEDS ORDERED: ALBUTEROL SO4 0.083% IH SOL 2.5 MG/3 ML VIAL.NEB. NEB ONE ×2 (13:36→13:58)
--- NOTE | 2019-01-11 14:53 | CONSULT ---
Consultation: REQUESTING PROVIDER: Dr. Pedro CONSULT REQUEST: We have been asked to medically evaluate this patient for asthma exacerbation. HISTORY OF PRESENT ILLNESS: 23 yo F estimated 24 weeks gestational age (with a hx of asthma (hx of intubation and hospitalization as an ; recurrent ED visits for asthma exacerbation in November and December) presents to the emergency department with SOB. Per the patient, she only uses albuterol and her symptoms began yesterday at 10pm after cold weather exposure. She endorses having AE after exposure to cold weather, but this was the "worse ever". Treated with prednisone and albuterol in previous ED visits without admission. 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 No recent travels or sick contacts. Denies the following: fevers, chills, visual changes, chest pain, abdominal pain, dysuria, hematuria, diarrhea, hematochezia, and leg pain/swelling. No hx of DVT/PE. No smoking history. REVIEW OF SYSTEMS: CONSTITUTIONAL: Absent: fever, chills, diaphoresis, generalized weakness, malaise, loss of appetite, weight change HEENT: Absent: rhinorrhea, nasal congestion, throat pain, throat swelling, difficulty swallowing, mouth swelling, ear pain, eye pain, visual changes CARDIOVASCULAR: Absent: chest pain, syncope, palpitations, irregular heart rate, lightheadedness , peripheral edema RESPIRATORY: shortness of breath, dyspnea with exertion, wheezing Absent: cough, , orthopnea, , stridor, hemoptysis GASTROINTESTINAL: Absent: abdominal pain, abdominal distension, nausea, vomiting, diarrhea, constipation, melena, hematochezia GENITOURINARY: Absent: dysuria, frequency, urgency, hesitancy, hematuria, flank pain, genital pain MUSCULOSKELETAL: Absent: myalgia, arthralgia, joint swelling, back pain, neck pain SKIN: Absent: rash, itching, pallor HEMATOLOGIC/IMMUNOLOGIC: Absent: easy bleeding, easy bruising, lymphadenopathy, frequent infections ENDOCRINE: Absent: unexplained weight gain, unexplained weight loss, heat intolerance, cold intolerance NEUROLOGIC: Absent: headache, focal weakness or paresthesias, dizziness, unsteady gait, seizure, mental status changes, bladder or bowel incontinence PSYCHIATRIC: Absent: anxiety, depression, suicidal or homicidal ideation, hallucinations. PHYSICAL EXAMINATION Vital Signs - 24 hr 01/11/19 01/11/19 01/11/19 10:05 11:46 14:10 Temperature 97.2 F L Pulse Rate 134 H Pulse Rate [ 114 H Left] Respiratory 24 H Rate Blood Pressure 112/69 O2 Sat by Pulse 100 100 Oximetry (%) GENERAL: Awake, alert, and fully oriented, in no acute distress. HEAD: Normal with no signs of trauma. EYES: Pupils equal, round and reactive to light, extraocular movements intact, sclera anicteric, conjunctiva clear. No lid lag. EARS, NOSE, THROAT: Ears normal, nares patent, oropharynx clear without exudates. Moist mucous membranes. NECK: Normal range of motion, supple without lymphadenopathy, JVD, or masses. LUNGS: Decreased breath sounds bilaterally with expiratory wheezing throughout the lung villanueva. Audible expiratory wheezes without auscultation. One worded sentences. HEART: Regular rate and rhythm, normal S1 and S2 without murmur, rub or gallop. ABDOMEN: Soft, nontender, not distended, normoactive bowel sounds, no guarding, no rebound, no masses. No hepatomegaly or splenomegaly. MUSCULOSKELETAL: Normal range of motion at all joints. No bony deformities or tenderness. No CVA tenderness. UPPER EXTREMITIES: 2+ pulses, warm, well-perfused. No cyanosis. No clubbing. Cap refill <2 seconds. No peripheral edema. LOWER EXTREMITIES: 2+ pulses, warm, well-perfused. No calf tenderness. No peripheral edema. NEUROLOGICAL: Cranial nerves II-XII intact. Normal speech. Normal gait. PSYCHIATRIC: Cooperative. Good eye contact. Appropriate mood and affect. SKIN: Warm, dry, normal turgor, no rashes or lesions noted. Laboratory Results - last 24 hr 01/11/19 01/11/19 01/11/19 10:38 10:38 14:00 WBC 10.8 H RBC 4.29 Hgb 13.1 Hct 37.8 MCV 88.0 MCH 30.6 MCHC 34.8 RDW 13.3 Plt Count 199 MPV 9.4 Absolute Neuts (auto) 7.3 Neutrophils % 68.3 Lymphocytes % 17.2 Monocytes % 7.4 Eosinophils % 6.6 H Basophils % 0.5 Nucleated RBC % 0 Sodium 138 Potassium 3.6 Chloride 108 H Carbon Dioxide 23 Anion Gap 7 L BUN 5 L Creatinine 0.4 L Creat Clearance w eGFR > 60 Random Glucose 88 Calcium 8.1 L Total Bilirubin 0.2 AST 12 L ALT 14 Alkaline Phosphatase 65 Total Protein 6.9 Albumin 3.2 L Influenza A (Rapid) Negative Influenza B (Rapid) Negative Active Medications Generic Name Dose Route Start Last Admin Trade Name Freq PRN Reason Stop Dose Admin Dextrose/Lactated Ringer's 1,000 mls @ 125 mls/hr 01/11/19 12:30 01/11/19 12: 43 D5-Lr - IV 125 mls/hr ASDIR ANTONIO Administration ASSESSMENT/PLAN: 23 yo F estimated 24 weeks gestational age (with a hx of asthma (hx of intubation and hospitalization as an infant; recurrent ED visits for asthma exacerbation in November and December) presents to the emergency department with SOB. The patient had 2 amps of albuterol, 2 grams of magnesium, and 10 mg of dexamethasone in the ED while on bipap with minimal improvement. Patient to be brought to the ICU due to uncontrolled SOB/WOB in setting of . Neuro: Alert and oriented x3 -Monitor for mental status changes Pulm: Hx asthma Currently on bipap 8/4 settings 14 RR with 40% Fio2 Clinically, she has decreased breath sounds with expiratory wheezes bilaterally throughout Unable to get CXR due to -Continue bipap and wean to NC as tolerated -duonebs standing and PRN -methylprednisolone 60 mg q6hr CV: tachycardia without hypotension. tachycardia likely secondary to asthma exacerbation. denies lightheadedness, dizziness, recent travels, hx of DVT/PE, and chest pain. Unlikely to be a vascular or cardiac compromise causing tachycardia. -Continue cardiac monitoring -Receiving LRs ID: Slight leukocytosis likely secondary to reactive. Afebrile, unlikely to have pneumonia. Potential to have a viral infection precipitating asthma exacerbation -Continue to monitor with AM CBC GI: No GI symptoms denies n/v/d/constipation Renal: BUN/Cr is 5/0.4. Receiving IVF -Continue to monitor BUN/Cr. FEN: Currently on PO diet monitor electrolytes and replete when necessary CONCESSIONIST: Patient is approximately 24 weeks GA based on LMP. - monitoring ordered to assess FHR Prophylaxis: DVT prophylaxis with SCDs Dispo: Will monitor in the ICU with anticipated downgrade within 24-48 hours. Visit type - Emergency Visit Emergency Visit: Yes ED Registration Date: 01/11/19 Care time: The patient presented to the Emergency Department on the above date and was hospitalized for further evaluation of their emergent condition. - New Patient This patient is new to me today: Yes Date on this admission: 01/11/19 - Critical Care Critical Care patient: Yes Total Critical Care Time (in minutes): 36 Critical Care Statement: The care of this patient involved high complexity decision making to prevent further life threatening deterioration of the patient 's condition and/or to evaluate & treat vital organ system(s) failure or risk of failure.
--- NOTE | 2019-01-11 14:54 | PN ---
Teaching Attending Note Name of Resident: Osmin Blackburn ATTENDING PHYSICIAN STATEMENT I saw and evaluated the patient. I reviewed the resident's note and discussed the case with the resident. I agree with the resident's findings and plan as documented. SUBJECTIVE: Patient seen and examined in the ER. 23 F, (?) 6 months and mild persistent asthma since childhood. 1 intubation in childhood only. Unknown PEF. Not steroid dependent. Has had 1 ER visit in November and again in December for AE of asthma treated with Prednisone and Albuterol. Reports that her previous 3 pregnancies did not exacerbate her Asthma. No travel history or sick contacts. No fever or chills. No hemoptysis. She denies smoking. No CXR. Intake & Output 01/08/19 01/09/19 01/10/19 01/11/19 23:59 23:59 23:59 23:59 Weight 160 lb Last Vital Signs Temp Pulse Resp BP Pulse Ox 97.2 F L 114 H 24 H 112/69 100 01/11/19 10:05 01/11/19 11:46 01/11/19 10:05 01/11/19 10:05 01/11/19 14:10 Active Medications Dextrose/Lactated Ringer's (D5-Lr -) 1,000 mls @ 125 mls/hr IV ASDIR ANTONIO Last Admin: 01/11/19 12:43 Dose: 125 mls/hr - Review of Systems GENERAL/CONSTITUTIONAL: No fever or chills. No weakness. HEAD, EYES, EARS, NOSE AND THROAT: No change in vision. No ear pain or discharge. No sore throat. CARDIOVASCULAR: No chest pain or shortness of breath. RESPIRATORY: (+) SOB. (+) wheezing GASTROINTESTINAL: No nausea, vomiting, diarrhea or constipation. GENITOURINARY: No dysuria, frequency, or change in urination. MUSCULOSKELETAL: No joint or muscle swelling or pain. No neck or back pain. SKIN: No rash NEUROLOGIC: No headache, vertigo, loss of consciousness, or change in strength/ sensation. ENDOCRINE: No increased thirst. No abnormal weight change. HEMATOLOGIC/LYMPHATIC: No anemia, easy bleeding, or history of blood clots. ALLERGIC/IMMUNOLOGIC: No hives or skin allergy. *Physical Exam GENERAL: Awake, alert, and oriented, Mildly tachypneic on NIPPV HEAD: No signs of trauma EYES: PERRLA, EOMI, sclera anicteric, conjunctiva clear ENT: oropharynx clear without exudates. Moist mucosa NECK: Normal ROM, supple, no lymphadenopathy, JVD, or masses LUNGS: Mildly Tachypneic, diffuse exp wheezes B/L, able to speak short sentences HEART: Regular rate and rhythm, normal S1 and S2, no murmurs, rubs or gallops ABDOMEN: Soft, nontender, normoactive bowel sounds. No guarding, no rebound. No masses EXTREMITIES: Normal range of motion, no edema. No clubbing or cyanosis. No cords, erythema, or tenderness NEUROLOGICAL: non-focal SKIN: Warm, Dry, normal turgor, no rashes or lesions noted. Laboratory Results - last 24 hr 01/11/19 01/11/19 01/11/19 10:38 10:38 14:00 WBC 10.8 H RBC 4.29 Hgb 13.1 Hct 37.8 MCV 88.0 MCH 30.6 MCHC 34.8 RDW 13.3 Plt Count 199 MPV 9.4 Absolute Neuts (auto) 7.3 Neutrophils % 68.3 Lymphocytes % 17.2 Monocytes % 7.4 Eosinophils % 6.6 H Basophils % 0.5 Nucleated RBC % 0 Sodium 138 Potassium 3.6 Chloride 108 H Carbon Dioxide 23 Anion Gap 7 L BUN 5 L Creatinine 0.4 L Creat Clearance w eGFR > 60 Random Glucose 88 Calcium 8.1 L Total Bilirubin 0.2 AST 12 L ALT 14 Alkaline Phosphatase 65 Total Protein 6.9 Albumin 3.2 L Influenza A (Rapid) Negative Influenza B (Rapid) Negative IMP: Acute Respiratory Failure due to AE of Asthma Suspected Viral illness Do not clinically suspect PNA 6 months History of mild intermittent asthma PLAN: NIPPV support Monitor off ABX for now Medrol 60mg [id number] BD TX standing and PRN Monitor PEF HOB and aspiration precautions Would keep NPO for now as aspiration risk is increased VTE prophylaxis OB evaluation / monitoring Requires ICU monitoring Dr Austin Critical care time spent in reviewing chart, evaluating patient and formulating plan - 36 minutes.
[2019-01-11] MEDS: ALBUTEROL SO4 2.5/IPRATROPIUM 0.5 INH SOL 3 ML VIAL.NEB. NEB PRN ×2 (20:07→23:41)
[2019-01-11] MEDS: AZITHROMYCIN IVPB 500 MG/250 ML BAG IVPB SCH (21:33)
[2019-01-11] MEDS: methylPREDNISolone NA SUCC 40 MG/1 ML VIAL IVPUSH SCH (22:16)
[2019-01-11] MEDS: DEXTROSE 5%-LACTATED RINGERS 1,000 ML IV SCH (23:14)
--- NOTE | 2019-01-11 23:18 | HP ---
Admitting History and Physical - Past Medical History ...: 4 ...Para: 3 - Smoking History Smoking history: Never smoked Have you smoked in the past 12 months: No If you are a former smoker, when did you quit?: X2 YEARS - Alcohol/Substance Use Hx Alcohol Use: No Home Medications - Allergies Allergies/Adverse Reactions: Allergies Allergy/AdvReac Type Severity Reaction Status Date / Time Fish Containing Products Allergy Verified 01/11/19 10:19 sea food Allergy Uncoded 01/11/19 10:19 - Home Medications Home Medications: Ambulatory Orders Albuterol 0.083% Nebulizer Gi [Ventolin 0.083%] 1 neb NEB Q4H PRN 09/07/18 Albuterol Sulfate Inhaler - [Ventolin HFA Inhaler -] 1 - 2 inh PO Q4H 4 Days #1 inhaler 12/21/18 Vit 108/Iron/Folic AC [ One Tablet] 1 tab PO DAILY 01/11/19 Physical Examination Vital Signs: Vital Signs Temperature 98.2 F 01/11/19 18:00 Pulse Rate 108 H 01/11/19 18:00 Respiratory Rate 18 01/11/19 18:00 Blood Pressure 137/85 01/11/19 18:00 O2 Sat by Pulse Oximetry (%) 100 01/11/19 21:06 Labs: CBC, BMP 01/11/19 10:38 01/11/19 10:38
--- NOTE | 2019-01-12 00:42 | CON.OBG ---
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 History of Present Illness: Py has come to [facility] ED in Nov & Dec for same complain, was treted with predniso e in DEC , No care yet in current . Pt does not remember when 1 month or 2 months ago [facility] , she was told she was too late , she had sonogram there , she was given EDC 04/25/19 , by that she is 25 weeks LMP she giveds07/29/18 , by which EDCis 05/05/19 that makes her today 23.5 weeks . 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 No: CVA, Migraine, Seizure Cardio/Vascular: No: HTN, Murmur Pulmonary: Yes: Asthma (takes albuterol or nebulizer treatment at home .H/o AE Asthma during last also ) Gastrointestinal: Yes: Other (declines GI problems ) Hepatobiliary: Yes: Other (declines ) Renal/: Yes: Other (denies h/o urinary symptoms or UTI in past) Reproductive: Yes: Other (h/o Regular menstural cycles ) ...LMP: 07/29/18 (pt is not sure) ...: Yes ...: 4 ...Para: 3 (G1 04/09/14 Pc/sec6'14",G2 12/29/16/rc/s 7'12", G3 05/18/18 rc/s 6'8" at [facility] ) Infectious Disease: Yes: Other (declines ) Psych: No: Addictions, Anxiety, Bipolar, Depression, Panic, Psychosis, Schizophrenia, Other - Past Surgical History Past Surgical History: Yes: (03/26, 12/30, 05/30 at [facility] ) - Alcohol/Substance Use Hx Alcohol Use: No History of Substance Use: reports: None - Smoking History Smoking history: Former smoker (quit smoking when during 2nd ) Have you smoked in the past 12 months: No If you are a former smoker, when did you quit?: X2 YEARS - Social History History of Recent Travel: No Home Medications - Allergies Allergies/Adverse Reactions: Allergies Allergy/AdvReac Type Severity Reaction Status Date / Time Fish Containing Products Allergy Verified 01/11/19 10:19 sea food Allergy Uncoded 01/11/19 10:19 - Home Medications Home Medications: Ambulatory Orders Albuterol 0.083% Nebulizer Gi [Ventolin 0.083%] 1 neb NEB Q4H PRN 09/07/18 Albuterol Sulfate Inhaler - [Ventolin HFA Inhaler -] 1 - 2 inh PO Q4H 4 Days #1 inhaler 12/21/18 Vit 108/Iron/Folic AC [ One Tablet] 1 tab PO DAILY 01/11/19 Physical Exam-DEEP FAT FRY COOK Vital Signs: Vital Signs Temperature 98.2 F 01/11/19 18:00 Pulse Rate 108 H 01/11/19 18:00 Respiratory Rate 18 01/11/19 18:00 Blood Pressure 137/85 01/11/19 18:00 O2 Sat by Pulse Oximetry (%) 100 01/11/19 21:06 Selected Entries 01/12/19 00:38 Temperature 98.5 F Pulse Rate 88 Blood Pressure 116/66 Constitutional: Yes: Well Nourished, Other (pt sob while talking on O2 , by Bipap) Eyes: Yes: WNL HENT: Yes: WNL, Normocephalic Neck: Yes: WNL Respiratory: Yes: Other (as per Weir Fisher) Gastrointestinal: Yes: WNL Renal/: Yes: . No: CVA Tenderness - Left, CVA Tenderness - Right Uterus: Yes: Other ( UT 22 weeks size clinically FPF haeart , checked on US SLIUP .) Breast(s): Yes: WNL. No: Mass Musculoskeletal: Yes: WNL Extremities: Yes: WNL. No: Calf Tenderness Edema: No Integumentary: Yes: Incision (old pfannensteil scar) Neurological: Yes: WNL ...Motor Strength: WNL Psychiatric: Yes: WNL Labs: CBC, BMP 01/11/19 10:38 01/11/19 10:38 Laboratory Tests 01/11/19 01/11/19 14:00 14:00 Influenza A (Rapid) Negative Influenza B (Rapid) Negative RSV Rapid Negative Problem List - Problems (1) 20 or more weeks gestation of Code(s): [id number] - (2) Asthma exacerbation Code(s): J45.901 - UNSPECIFIED ASTHMA WITH (ACUTE) EXACERBATION Qualifiers: Asthma severity: unspecified severity Asthma persistence: unspecified Qualified Code(s): J45.901 - Unspecified asthma with (acute) exacerbation (3) Previous section complicating Code(s): O34.219 - MATERNAL CARE FOR UNSP TYPE SCAR FROM PREVIOUS DEL Assessment/Plan 23 Yrs , previous c/section x3 ,25 weeks by ? sono or ? 23 weeks by dates admitted for AE Asthma in icu Plan OB songram done ..official report pending, prelimnary report 20.6 weeks sliup, , post placenta, , afluid normal, cx 5.[address] asthma management ct prenatl vit pt is explained , importance of care . she will do work up with MD she chooses . I will ordr uc/s, ct/gc, HiV & RPR , blood type ct vit daily . official sonogram report reviewed
[2019-01-12] MEDS: methylPREDNISolone NA SUCC 40 MG/1 ML VIAL IVPUSH SCH ×4 (04:09→21:00)
[2019-01-12] MEDS ORDERED: guaiFENesin 200 MG/10 ML 10 ML UNIT-DOSE CUPS PO ONE (04:31)
[2019-01-12 07:13] LABS: HEMATOCRIT 33.2 % (32.4-45.2); HEMOGLOBIN 11.5 GM/dL (10.7-15.3); LYMPH % 6.2 % (8-40); MCH 30.1 pg (25.7-33.7); MCHC 34.7 g/dl (32.0-36.0); MEAN PLT VOLUME 9.7 fl (7.5-11.1); NEUT % 91.8 % (42.8-82.8); PLATELET COUNT 178 K/MM3 (134-434); RBC 3.81 M/mm3 (3.60-5.2); RDW 13.4 % (11.6-15.6); WHITE BLOOD COUNT 12.6 K/mm3 (4.0-10.0)
[2019-01-12 07:58] LABS: ALBUMIN 2.9 g/dl (3.4-5.0); ALK PHOS 61 U/L (45-117); ANION GAP 8 MMOL/L (8-16); BILIRUBIN,TOTAL 0.3 mg/dL (0.2-1); CALCIUM 7.9 mg/dL (8.5-10.1); CHLORIDE 108 mmol/L (98-107); CO2 20 mmol/L (21-32); CREATININE 0.4 mg/dL (0.55-1.3); GLUCOSE,RANDOM 130 mg/dL (74-106); POTASSIUM 3.8 mmol/L (3.5-5.1); SGOT/AST 13 U/L (15-37); SGPT/ALT 13 U/L (13-61); SODIUM 136 mmol/L (136-145); TOT PROT 6.3 g/dl (6.4-8.2)
[2019-01-12] MEDS ORDERED: PT OWN MED DRAWER 7, Y5N ONE ×2 (08:08→09:00)
[2019-01-12 08:29] LABS: BLOOD UREA NITROGEN 2 mg/dL (7-18)
[2019-01-12] MEDS: ALBUTEROL SO4 2.5/IPRATROPIUM 0.5 INH SOL 3 ML VIAL.NEB. NEB PRN ×4 (08:34→21:07)
[2019-01-12] MEDS: AZITHROMYCIN IVPB 500 MG/250 ML BAG IVPB SCH (09:00)
[2019-01-12] MEDS: PRENATAL VITAMINS W/ FOLIC ACID TABLET (FP) PO SCH (09:00)
[2019-01-12] MEDS: ENOXAPARIN NA (PORCINE) 40 MG/0.4 ML DISP.SYRIN SQ SCH (09:01)
--- NOTE | 2019-01-12 10:00 | PN ---
Teaching Attending Note Name of Resident: Cathryn Morocho ATTENDING PHYSICIAN STATEMENT I saw and evaluated the patient. I reviewed the resident's note and discussed the case with the resident. I agree with the resident's findings and plan as documented. SUBJECTIVE: Patient seen and examined in the ICU. Awake and alert. Used NIPPV overnight. Breathing feels better today. Had a "coughing fit" that triggered wheezing. No CP. Intake & Output 01/09/19 01/10/19 01/11/19 01/12/19 23:59 23:59 23:59 23:59 Intake Total 100 Balance 100 Weight 160 lb Last Vital Signs Temp Pulse Resp BP Pulse Ox 98.5 F 82 19 122/55 L 100 01/12/19 00:38 01/12/19 04:00 01/12/19 09:00 01/12/19 04:00 01/12/19 09:00 Active Medications Albuterol/Ipratropium (Duoneb -) 1 amp NEB Q4H PRN PRN Reason: SHORTNESS OF BREATH Last Admin: 01/12/19 08:34 Dose: 1 amp Enoxaparin Sodium (Lovenox -) 40 mg SQ DAILY [facility] Last Admin: 01/12/19 09:01 Dose: 40 mg Dextrose/Lactated Ringer's (D5-Lr -) 1,000 mls @ 75 mls/hr IV ASDIR [facility] Last Admin: 01/11/19 23:14 Dose: Not Given Methylprednisolone Sodium Succinate (Solu-Medrol -) 60 mg IVPUSH Q6H-IV [facility] Last Admin: 01/12/19 08:35 Dose: 60 mg Multivit/Folic Acid/Iron ( Vitamins (Sjr) -) 1 tab PO DAILY [facility] Last Admin: 01/12/19 09:00 Dose: 1 tab *Physical Exam GENERAL: Awake, alert, and oriented, breathing is more comfortable HEAD: No signs of trauma EYES: PERRLA, EOMI, sclera anicteric, conjunctiva clear ENT: oropharynx clear without exudates. Moist mucosa NECK: Normal ROM, supple, no lymphadenopathy, JVD, or masses LUNGS: Less tachypneic, decrease in diffuse expiratory wheezes, speaking in full sentences HEART: Regular rate and rhythm, normal S1 and S2, no murmurs, rubs or gallops ABDOMEN: Soft, nontender, normoactive bowel sounds. No guarding, no rebound. No masses EXTREMITIES: Normal range of motion, no edema. No clubbing or cyanosis. No cords, erythema, or tenderness NEUROLOGICAL: non-focal SKIN: Warm, Dry, normal turgor, no rashes or lesions noted. Laboratory Results - last 24 hr 01/11/19 01/11/19 01/11/19 10:38 10:38 14:00 WBC 10.8 H RBC 4.29 Hgb 13.1 Hct 37.8 MCV 88.0 MCH 30.6 MCHC 34.8 RDW 13.3 Plt Count 199 MPV 9.4 Absolute Neuts (auto) 7.3 Neutrophils % 68.3 Lymphocytes % 17.2 Monocytes % 7.4 Eosinophils % 6.6 H Basophils % 0.5 Nucleated RBC % 0 Sodium 138 Potassium 3.6 Chloride 108 H Carbon Dioxide 23 Anion Gap 7 L BUN 5 L Creatinine 0.4 L Creat Clearance w eGFR > 60 Random Glucose 88 Calcium 8.1 L Total Bilirubin 0.2 AST 12 L ALT 14 Alkaline Phosphatase 65 Total Protein 6.9 Albumin 3.2 L Influenza A (Rapid) Negative Influenza B (Rapid) Negative RSV Rapid 01/11/19 01/12/19 01/12/19 14:00 05:30 05:30 WBC 12.6 H RBC 3.81 Hgb 11.5 Hct 33.2 MCV 87.0 MCH 30.1 MCHC 34.7 RDW 13.4 Plt Count 178 MPV 9.7 Absolute Neuts (auto) 11.5 H Neutrophils % 91.8 H D Lymphocytes % 6.2 L D Monocytes % 2.0 L Eosinophils % 0.0 D Basophils % 0.0 Nucleated RBC % 0 Sodium 136 Potassium 3.8 Chloride 108 H Carbon Dioxide 20 L Anion Gap 8 BUN 2 L* Creatinine 0.4 L Creat Clearance w eGFR > 60 Random Glucose 130 H Calcium 7.9 L Total Bilirubin 0.3 AST 13 L ALT 13 Alkaline Phosphatase 61 Total Protein 6.3 L Albumin 2.9 L Influenza A (Rapid) Influenza B (Rapid) RSV Rapid Negative IMP: Acute Respiratory Failure due to AE of Asthma Suspected Viral illness Do not clinically suspect PNA 6 months History of mild intermittent asthma PLAN: NIPPV support Would monitor off ABX for now Medrol 60mg M0onibh BD TX standing and PRN Monitor PEF HOB and aspiration precautions PO as tolerated VTE prophylaxis OB evaluation noted Floor Dr Austin
[2019-01-12 10:15] LABS: ANISOCYTOSIS 2+; MACROCYTOSIS 1+; OVALOCYTE 1+; PLATELET ESTIMATE NORMAL
--- NOTE | 2019-01-12 11:54 | PN ---
Physical Exam: SUBJECTIVE: Patient seen and examined by me at bedside Patient on NIPPV overnight. Had wheezing this morning due to a "coughing spell." Patient however denies any chest pain, palpitations, worsening shortness of breath, fever, chills. OBJECTIVE: Vital Signs Period Temp Pulse Resp BP Sys/Taylor Pulse Ox Last 24 Hr 98.1 F-98.5 F 80-120 17-24 113-148/55-85 96-100 GENERAL: The patient is awake, alert, and fully oriented, in no acute distress. EYES: PERRL, sclera anicteric, conjunctiva clear. ENT: Moist mucous membranes LUNGS: Diffuse wheezing bilaterally and anteriorly. No accessory muscle use. HEART: Regular rate and rhythm, normal s1 and s2 without murmur, rub or gallop. ABDOMEN: Soft, nontender, nondistended, normoactive bowel sounds EXTREMITIES: No edema. NEUROLOGICAL: No focal deficits. Normal speech, gait not observed. Laboratory Results 01/12/19 05:30 01/12/19 05:30 Active Medications Generic Name Dose Route Start Last Admin Trade Name Freq PRN Reason Stop Dose Admin Albuterol/Ipratropium 1 amp 01/11/19 17:10 01/12/19 08:34 Duoneb - NEB 1 amp Q4H PRN Administration SHORTNESS OF BREATH Enoxaparin Sodium 40 mg 01/12/19 10:00 01/12/19 09:01 Lovenox - SQ 40 mg DAILY [facility] Administration Dextrose/Lactated Ringer's 1,000 mls @ 75 mls/hr 01/11/19 22:41 01/11/19 23: 14 D5-Lr - IV Not Given ASDIR ANTONIO Methylprednisolone Sodium Succinate 60 mg 01/11/19 21:00 01/12/19 08:35 Solu-Medrol - IVPUSH 60 mg Q6H-IV [facility]IO Administration Multivit/Folic Acid/Iron 1 tab 01/12/19 10:00 01/12/19 09:00 Vitamins (Sjr) - PO 1 tab DAILY [facility] Administration ASSESSMENT/PLAN: Patient is a 23 year old female with a PMHx of Asthma and currently 24 weeks who presented for shortness of breath and was found to be in acute exacerbation. NEUROLOGY -Alert and oriented x3 -Monitor for mental status changes PULMONARY #Acute on Chronic Asthma Exacerbation -On NIPPV overnight -Continue Methylprednisolone 60mg Q6HIV -Continue Albuterol/Ipratropium 1 amp Q4H PRN -Keep 02 saturation >96% INFECTIOUS DISEASE -Slight leukocytosis likely secondary to steroids. Afebrile, unlikely to have pneumonia. 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 Visit type - Emergency Visit Emergency Visit: Yes ED Registration Date: 01/11/19 Care time: The patient presented to the Emergency Department on the above date and was hospitalized for further evaluation of their emergent condition. - New Patient This patient is new to me today: Yes Date on this admission: 01/12/19 - Critical Care Critical Care patient: Yes Total Critical Care Time (in minutes): 45 Critical Care Statement: The care of this patient involved high complexity decision making to prevent further life threatening deterioration of the patient 's condition and/or to evaluate & treat vital organ system(s) failure or risk of failure.
--- NOTE | 2019-01-12 22:27 | PN ---
Progress Note, Physician - Current Medication List Current Medications: Active Medications Albuterol/Ipratropium (Duoneb -) 1 amp NEB Q4H PRN PRN Reason: SHORTNESS OF BREATH Last Admin: 01/12/19 21:07 Dose: 1 amp Enoxaparin Sodium (Lovenox -) 40 mg SQ DAILY [facility] Last Admin: 01/12/19 09:01 Dose: 40 mg Dextrose/Lactated Ringer's (D5-Lr -) 1,000 mls @ 75 mls/hr IV ASDIR [facility] Last Admin: 01/11/19 23:14 Dose: Not Given Methylprednisolone Sodium Succinate (Solu-Medrol -) 60 mg IVPUSH Q6H-IV [facility] Last Admin: 01/12/19 21:00 Dose: 60 mg Multivit/Folic Acid/Iron ( Vitamins (Sjr) -) 1 tab PO DAILY [facility] Last Admin: 01/12/19 09:00 Dose: 1 tab - Objective Vital Signs: Vital Signs Temperature 97.6 F 01/12/19 14:00 Pulse Rate 100 H 01/12/19 16:40 Respiratory Rate 16 01/12/19 16:40 Blood Pressure 139/71 01/12/19 16:40 O2 Sat by Pulse Oximetry (%) 99 01/12/19 16:38 Labs: CBC, BMP 01/12/19 05:30 01/12/19 05:30
[2019-01-13] MEDS ORDERED: guaiFENesin 200 MG/10 ML 10 ML UNIT-DOSE CUPS PO ONE (01:23)
[2019-01-13] MEDS: ALBUTEROL SO4 2.5/IPRATROPIUM 0.5 INH SOL 3 ML VIAL.NEB. NEB PRN ×4 (01:33→21:14)
[2019-01-13] MEDS: DEXTROSE 5%-LACTATED RINGERS 1,000 ML IV SCH (01:54)
[2019-01-13] MEDS: methylPREDNISolone NA SUCC 40 MG/1 ML VIAL IVPUSH SCH ×4 (02:55→20:08)
[2019-01-13 05:54] LABS: HEMATOCRIT 32.4 % (32.4-45.2); HEMOGLOBIN 11.3 GM/dL (10.7-15.3); MCH 30.3 pg (25.7-33.7); MCHC 34.8 g/dl (32.0-36.0); MEAN PLT VOLUME 9.7 fl (7.5-11.1); PLATELET COUNT 180 K/MM3 (134-434); RBC 3.72 M/mm3 (3.60-5.2); RDW 13.4 % (11.6-15.6); WHITE BLOOD COUNT 14.6 K/mm3 (4.0-10.0)
[2019-01-13 06:49] LABS: ANION GAP 9 MMOL/L (8-16); BLOOD UREA NITROGEN 3 mg/dL (7-18); CALCIUM 8.2 mg/dL (8.5-10.1); CHLORIDE 109 mmol/L (98-107); CO2 21 mmol/L (21-32); CREATININE 0.4 mg/dL (0.55-1.3); GLUCOSE,RANDOM 128 mg/dL (74-106); MAGNESIUM 1.9 mg/dL (1.8-2.4); PHOSPHOROUS 2.4 mg/dL (2.5-4.9); POTASSIUM 3.6 mmol/L (3.5-5.1); SODIUM 138 mmol/L (136-145)
[2019-01-13] MEDS: guaiFENesin 200 MG/10 ML 10 ML UNIT-DOSE CUPS PO PRN ×2 (07:29→23:16)
--- NOTE | 2019-01-13 09:34 | PN ---
Progress Note (short form) - Note Progress Note: pt is feeling better not on O2 presently pt is feeling FM Ob nursrs checking FHR q shift -wnl 01/11/19 ob sono done in hosp reported as SLIUP, 20.6 week GA , Post placenta,AF adequate, breech, cx length 5.2 cm By this sono her EDC is 05/25/19 . pt is notified continue vit upon discharge . register for care with Dr Acevedo. If patient plans to deliver at [facility], she should call the clinic at [facility]147 [phone] for appointment or PMD OB doctors affiliated with [facility] I counselled her BTL during c/section Selected Entries 01/13/19 07:00 Temperature 98.2 F Pulse Rate 104 H Respiratory 17 Rate Blood Pressure 111/67 Laboratory Tests 01/13/19 05:30 WBC 14.6 H Hgb 11.3 Hct 32.4 Plt Count 180 Microbiology 01/12/19 12:15 Urine - Urine Clean Catch Urine Culture - Final NO GROWTH OBTAINED Laboratory Tests 01/12/19 01/13/19 13:31 05:30 RPR Titer Nonreactive HIV 1&2 Antibody Screen Negative HIV P24 Antigen Negative Problem List - Problems (1) 20 or more weeks gestation of Code(s): GPP5992 - (2) Asthma exacerbation Code(s): J45.901 - UNSPECIFIED ASTHMA WITH (ACUTE) EXACERBATION Qualifiers: Asthma severity: unspecified severity Asthma persistence: unspecified Qualified Code(s): J45.901 - Unspecified asthma with (acute) exacerbation (3) Previous section complicating Code(s): O34.219 - MATERNAL CARE FOR UNSP TYPE SCAR FROM PREVIOUS DEL
[2019-01-13] MEDS ORDERED: PT OWN MED DRAWER 7, Y5N ONE (09:37)
[2019-01-13] MEDS: ENOXAPARIN NA (PORCINE) 40 MG/0.4 ML DISP.SYRIN SQ SCH (09:44)
[2019-01-13] MEDS: PRENATAL VITAMINS W/ FOLIC ACID TABLET (FP) PO SCH (09:44)
--- NOTE | 2019-01-13 09:47 | PN ---
Teaching Attending Note Name of Resident: Werner Allen ATTENDING PHYSICIAN STATEMENT I saw and evaluated the patient. I reviewed the resident's note and discussed the case with the resident. I agree with the resident's findings and plan as documented. SUBJECTIVE: Patient seen and examined in the ICU. Awake and alert. Did not require NIPPV overnight. Breathing continues to slowly improve. Still with intermittent coughing fits that trigger her wheezing. No CP. Intake & Output 01/10/19 01/11/19 01/12/19 01/13/19 23:59 23:59 23:59 23:59 Intake Total 100 1855 1260 Balance 100 1855 1260 Weight 160 lb Last Vital Signs Temp Pulse Resp BP Pulse Ox 98.2 F 104 H 17 111/67 96 01/13/19 07:00 01/13/19 07:00 01/13/19 07:00 01/13/19 07:00 01/12/19 21:00 Active Medications Albuterol/Ipratropium (Duoneb -) 1 amp NEB Q4H PRN PRN Reason: SHORTNESS OF BREATH Last Admin: 01/13/19 07:27 Dose: 1 amp Enoxaparin Sodium (Lovenox -) 40 mg SQ DAILY [facility] Last Admin: 01/13/19 09:44 Dose: 40 mg Guaifenesin (Robitussin -) 10 ml PO Q6H PRN PRN Reason: COUGH Last Admin: 01/13/19 07:29 Dose: 10 ml Dextrose/Lactated Ringer's (D5-Lr -) 1,000 mls @ 75 mls/hr IV ASDIR [facility] Last Admin: 01/13/19 01:54 Dose: 75 mls/hr Methylprednisolone Sodium Succinate (Solu-Medrol -) 60 mg IVPUSH Q6H-IV [facility] Last Admin: 01/13/19 08:18 Dose: 60 mg Multivit/Folic Acid/Iron ( Vitamins (Sjr) -) 1 tab PO DAILY [facility] Last Admin: 01/13/19 09:44 Dose: 1 tab *Physical Exam GENERAL: Awake, alert, and oriented, breathing is more comfortable HEAD: No signs of trauma EYES: PERRLA, EOMI, sclera anicteric, conjunctiva clear ENT: oropharynx clear without exudates. Moist mucosa NECK: Normal ROM, supple, no lymphadenopathy, JVD, or masses LUNGS: Less tachypneic, decrease in diffuse expiratory wheezes, speaking in full sentences HEART: Regular rate and rhythm, normal S1 and S2, no murmurs, rubs or gallops ABDOMEN: Soft, nontender, normoactive bowel sounds. No guarding, no rebound. No masses EXTREMITIES: Normal range of motion, no edema. No clubbing or cyanosis. No cords, erythema, or tenderness NEUROLOGICAL: non-focal SKIN: Warm, Dry, normal turgor, no rashes or lesions noted. Laboratory Results - last 24 hr 01/12/19 01/12/19 01/13/19 05:30 13:31 05:30 WBC RBC Hgb Hct MCV MCH MCHC RDW Plt Count MPV Neutrophils % (Manual) 95.0 H Band Neutrophils % 0.0 Lymphocytes % (Manual) 4.0 L Monocytes % (Manual) 0 L Eosinophils % (Manual) 1.0 Basophils % (Manual) 0.0 Myelocytes % (Man) 0 Promyelocytes % (Man) 0 Blast Cells % (Manual) 0 Metamyelocytes 0 Hypochromia 0 Platelet Estimate Normal Platelet Comment Present Polychromasia 1+ Poikilocytosis 1+ Anisocytosis 2+ Microcytosis 1+ Macrocytosis 1+ Ovalocytes 1+ [place] Cells 1+ Acanthocytes (Spur) 1+ Sodium Potassium Chloride Carbon Dioxide Anion Gap BUN Creatinine Creat Clearance w eGFR Random Glucose Calcium Phosphorus Magnesium RPR Titer Nonreactive HIV 1&2 Antibody Screen Negative HIV P24 Antigen Negative 01/13/19 01/13/19 05:30 05:30 WBC 14.6 H RBC 3.72 Hgb 11.3 Hct 32.4 MCV 87.0 MCH 30.3 MCHC 34.8 RDW 13.4 Plt Count 180 MPV 9.7 Neutrophils % (Manual) Band Neutrophils % Lymphocytes % (Manual) Monocytes % (Manual) Eosinophils % (Manual) Basophils % (Manual) Myelocytes % (Man) Promyelocytes % (Man) Blast Cells % (Manual) Metamyelocytes Hypochromia Platelet Estimate Platelet Comment Polychromasia Poikilocytosis Anisocytosis Microcytosis Macrocytosis Ovalocytes [place] Cells Acanthocytes (Spur) Sodium 138 Potassium 3.6 Chloride 109 H Carbon Dioxide 21 Anion Gap 9 BUN 3 L Creatinine 0.4 L Creat Clearance w eGFR > 60 Random Glucose 128 H Calcium 8.2 L Phosphorus 2.4 L Magnesium 1.9 RPR Titer HIV 1&2 Antibody Screen HIV P24 Antigen IMP: Acute Respiratory Failure due to AE of Asthma Suspected Viral illness Do not clinically suspect PNA 6 months History of mild intermittent asthma PLAN: NIPPV support PRN Would monitor off ABX for now Wean Medrol BD TX standing and PRN Monitor PEF: not done yet today HOB and aspiration precautions PO as tolerated VTE prophylaxis Floor Dr Austin
[2019-01-13] MEDS ORDERED: methylPREDNISolone NA SUCC 40 MG/1 ML VIAL IVPUSH SCH (09:56)
--- NOTE | 2019-01-13 09:57 | PN ---
Physical Exam: SUBJECTIVE: Patient seen and examined at bedside. Continues to cough overnight. No other complaints. Much improved. OBJECTIVE: Vital Signs Period Temp Pulse Resp BP Sys/Taylor Pulse Ox Last 24 Hr 97.6 F-98.9 F 77-108 16-21 94-139/49-76 96-99 Gen: AAOx3, comfortable, NAD HEENT: NCAT, EOMI Neck: no jvd, supple Cardio: rrr, normal s1s2, no mrg Pulm: no rales, ronchi, mild scattered wheeze Abd: Gravid, soft, nontender Ext: no edema Laboratory Results - last 24 hr 01/12/19 01/12/19 01/13/19 05:30 13:31 05:30 WBC RBC Hgb Hct MCV MCH MCHC RDW Plt Count MPV Neutrophils % (Manual) 95.0 H Band Neutrophils % 0.0 Lymphocytes % (Manual) 4.0 L Monocytes % (Manual) 0 L Eosinophils % (Manual) 1.0 Basophils % (Manual) 0.0 Myelocytes % (Man) 0 Promyelocytes % (Man) 0 Blast Cells % (Manual) 0 Metamyelocytes 0 Hypochromia 0 Platelet Estimate Normal Platelet Comment Present Polychromasia 1+ Poikilocytosis 1+ Anisocytosis 2+ Microcytosis 1+ Macrocytosis 1+ Ovalocytes 1+ [place] Cells 1+ Acanthocytes (Spur) 1+ Sodium Potassium Chloride Carbon Dioxide Anion Gap BUN Creatinine Creat Clearance w eGFR Random Glucose Calcium Phosphorus Magnesium RPR Titer Nonreactive HIV 1&2 Antibody Screen Negative HIV P24 Antigen Negative 01/13/19 01/13/19 05:30 05:30 WBC 14.6 H RBC 3.72 Hgb 11.3 Hct 32.4 MCV 87.0 MCH 30.3 MCHC 34.8 RDW 13.4 Plt Count 180 MPV 9.7 Neutrophils % (Manual) Band Neutrophils % Lymphocytes % (Manual) Monocytes % (Manual) Eosinophils % (Manual) Basophils % (Manual) Myelocytes % (Man) Promyelocytes % (Man) Blast Cells % (Manual) Metamyelocytes Hypochromia Platelet Estimate Platelet Comment Polychromasia Poikilocytosis Anisocytosis Microcytosis Macrocytosis Ovalocytes [place] Cells Acanthocytes (Spur) Sodium 138 Potassium 3.6 Chloride 109 H Carbon Dioxide 21 Anion Gap 9 BUN 3 L Creatinine 0.4 L Creat Clearance w eGFR > 60 Random Glucose 128 H Calcium 8.2 L Phosphorus 2.4 L Magnesium 1.9 RPR Titer HIV 1&2 Antibody Screen HIV P24 Antigen Active Medications Generic Name Dose Route Start Last Admin Trade Name Perryq PRN Reason Stop Dose Admin Albuterol/Ipratropium 1 amp 01/11/19 17:10 01/13/19 07:27 Duoneb - NEB 1 amp Q4H PRN Administration SHORTNESS OF BREATH Enoxaparin Sodium 40 mg 01/12/19 10:00 01/13/19 09:44 Lovenox - SQ 40 mg DAILY ANTONIO Administration Guaifenesin 10 ml 01/13/19 06:43 01/13/19 07:29 Robitussin - PO 10 ml Q6H PRN Administration COUGH Dextrose/Lactated Ringer's 1,000 mls @ 75 mls/hr 01/11/19 22:41 01/13/19 01: 54 D5-Lr - IV 75 mls/hr ASDIR ANTONIO Administration Methylprednisolone Sodium Succinate 60 mg 01/11/19 21:00 01/13/19 08:18 Solu-Medrol - IVPUSH 60 mg Q6H-IV AN[facility]IO Administration Multivit/Folic Acid/Iron 1 tab 01/12/19 10:00 01/13/19 09:44 Vitamins (Sjr) - PO 1 tab DAILY [facility]IO Administration ASSESSMENT/PLAN: Patient is a 23 year old female with a PMHx of Asthma and currently 24 weeks who presented for shortness of breath and was found to be in acute exacerbation. NEUROLOGY -Alert and oriented x3 -Monitor for mental status changes PULMONARY #Acute on Chronic Asthma Exacerbation -Did not require NIPPV overnight -Decrease Methylprednisolone to 40mg Q6HIV -Continue Albuterol/Ipratropium 1 amp Q4H PRN -Keep 02 saturation >96% INFECTIOUS DISEASE -Slight leukocytosis likely secondary to steroids. Afebrile, unlikely to have pneumonia. 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 Visit type - Emergency Visit Emergency Visit: No - New Patient This patient is new to me today: Yes Date on this admission: 01/13/19 - Critical Care Critical Care patient: Yes Total Critical Care Time (in minutes): 45 Critical Care Statement: The care of this patient involved high complexity decision making to prevent further life threatening deterioration of the patient 's condition and/or to evaluate & treat vital organ system(s) failure or risk of failure.
[2019-01-13] MEDS: MAG HYDROX/AL HYDROX/SIMETH 30 ML UNIT-DOSE CUP PO PRN (20:08)
--- NOTE | 2019-01-13 23:38 | PN ---
Progress Note, Physician - Current Medication List Current Medications: Active Medications Al Hydroxide/Mg Hydroxide (Mylanta Oral Suspension -) 30 ml PO Q6H PRN PRN Reason: DYSPEPSIA Last Admin: 01/13/19 20:08 Dose: 30 ml Albuterol/Ipratropium (Duoneb -) 1 amp NEB Q4H PRN PRN Reason: SHORTNESS OF BREATH Last Admin: 01/13/19 21:14 Dose: 1 amp Enoxaparin Sodium (Lovenox -) 40 mg SQ DAILY [facility] Last Admin: 01/13/19 09:44 Dose: 40 mg Guaifenesin (Robitussin -) 10 ml PO Q6H PRN PRN Reason: COUGH Last Admin: 01/13/19 07:29 Dose: 10 ml Dextrose/Lactated Ringer's (D5-Lr -) 1,000 mls @ 75 mls/hr IV ASDIR [facility] Last Admin: 01/13/19 01:54 Dose: 75 mls/hr Methylprednisolone Sodium Succinate (Solu-Medrol -) 40 mg IVPUSH Q6H-IV [facility] Last Admin: 01/13/19 20:08 Dose: 40 mg Multivit/Folic Acid/Iron ( Vitamins (Sjr) -) 1 tab PO DAILY [facility] Last Admin: 01/13/19 09:44 Dose: 1 tab - Objective Vital Signs: Vital Signs Temperature 98.2 F 01/13/19 16:00 Pulse Rate 95 H 01/13/19 18:10 Respiratory Rate 20 01/13/19 18:10 Blood Pressure 119/64 01/13/19 18:10 O2 Sat by Pulse Oximetry (%) 100 01/13/19 19:13 Labs: CBC, BMP 01/13/19 05:30 01/13/19 05:30
[2019-01-14] MEDS: DEXTROSE 5%-LACTATED RINGERS 1,000 ML IV SCH (00:16)
[2019-01-14] MEDS: methylPREDNISolone NA SUCC 40 MG/1 ML VIAL IVPUSH SCH ×2 (02:06→09:28)
[2019-01-14] MEDS: ALBUTEROL SO4 2.5/IPRATROPIUM 0.5 INH SOL 3 ML VIAL.NEB. NEB PRN (07:09)
[2019-01-14] MEDS: ALBUTEROL SO4 2.5/IPRATROPIUM 0.5 INH SOL 3 ML VIAL.NEB. NEB SCH ×4 (07:35→20:21)
--- NOTE | 2019-01-14 07:35 | PN ---
Physical Exam: SUBJECTIVE: Patient seen and examined at bedside. No acute overnight events. She denies subjective fevers, chills, shortness of breath, chest pain, palpitations, abdominal pain, nausea, vomiting, melena, hematochezia, dysuria, hematuria. Peak flow today 200. OBJECTIVE: Vital Signs Period Temp Pulse Resp BP Sys/Taylor Pulse Ox Last 24 Hr 98.1 F-98.8 F 79-115 16-24 108-123/56-72 96-100 GENERAL: The patient is awake, alert, and fully oriented, in no acute distress. HEAD: Normocephalic, atraumatic. EYES: PERRL, EOMI, sclera anicteric, conjunctiva clear. ENT: Oropharynx clear without exudates, moist mucous membranes. NECK: Supple, without lymphadenopathy. LUNGS: Good inspiratory effort, and air entry bilaterally. Inspiratory and faint expiratory wheezes with rhonchi auscultated bilaterally. No accessory muscles of respiration use. HEART: Regular rate and rhythm, S1, S2 without murmur, rub or gallop. ABDOMEN: Soft, gravid abdomen, nontender X4 quadrants. Normoactive bowel sounds X4 quadrants. No guarding, no rebound tenderness. EXTREMITIES: 2+ radial, dorsalis pedis pulses bilaterally. Warm, well-perfused. 1+ lower extremity edema bilaterally. NEUROLOGICAL: Cranial nerves II through XII grossly intact. Normal speech. No gross focal deficits. PSYCH: Normal mood, normal affect upon my encounter. SKIN: Warm, dry. Laboratory Results - last 24 hr 01/13/19 05:30 RPR Titer Nonreactive Active Medications Generic Name Dose Route Start Last Admin Trade Name Freq PRN Reason Stop Dose Admin Al Hydroxide/Mg Hydroxide 30 ml 01/13/19 19:52 01/13/19 20:08 Mylanta Oral Suspension - PO 30 ml Q6H PRN Administration DYSPEPSIA Albuterol/Ipratropium 1 amp 01/14/19 07:15 Duoneb - NEB QIDR ANTONIO Enoxaparin Sodium 40 mg 01/12/19 10:00 01/13/19 09:44 Lovenox - SQ 40 mg DAILY ANTONIO Administration Guaifenesin 10 ml 01/13/19 06:43 01/13/19 23:16 Robitussin - PO 10 ml Q6H PRN Administration COUGH Dextrose/Lactated Ringer's 1,000 mls @ 75 mls/hr 01/11/19 22:41 01/14/19 00: 16 D5-Lr - IV Not Given ASDIR ANTONIO Methylprednisolone Sodium Succinate 40 mg 01/13/19 15:00 01/14/19 02:06 Solu-Medrol - IVPUSH 40 mg Q6H-IV ANTONIO Administration Multivit/Folic Acid/Iron 1 tab 01/12/19 10:00 01/13/19 09:44 Vitamins (Sjr) - PO 1 tab DAILY ANTONIO Administration ASSESSMENT/PLAN: Patient is 23 year old female with history of asthma, admitted to ICU for acute respiratory distress. Neurological -Patient is awake, alert, oriented. No acute distress -Monitor for signs of mental status change. Pulmonary Asthma -Patient is saturating well on room air. -Maintain oxygen saturation greater than 90% -DuoNebs Q6H standing -Robitussin 10mL PO Q6H PRN for cough -Prednisone 40mg PO daily. Patient requires tapering of steroids as outpatient. -Patient will require LABA, inhaled corticosteroids at discharge. Cardiac -Patient is normotensive. -Monitor vital signs closely Gastrointestinal -Patient is tolerating regular diet without abdominal pain, nausea, vomiting, diarrhea. -Mylanta 30mL PO Q6H PRN Renal -Patient is urinating without dysuria, hematuria. -Monitor intake, and output WE[facility] CONTROL LECT[facility]ER -Patient requires monitoring on WEIGHT CONTROL LECTURER floor - vitamins daily FEN -No IV fluids indicated. -Hypokalemia, repleted. Follow CMP, replete as necessary. -Regular diet Prophylaxis -Lovenox 40mg subq daily Disposition -Patient is medically stable for transfer to WE[facility] CONTROL LECTURER floor. Visit type - Emergency Visit Emergency Visit: Yes ED Registration Date: 01/11/19 Care time: The patient presented to the Emergency Department on the above date and was hospitalized for further evaluation of their emergent condition. - New Patient This patient is new to me today: Yes Date on this admission: 01/14/19 - Critical Care Critical Care patient: Yes Total Critical Care Time (in minutes): 35 Critical Care Statement: The care of this patient involved high complexity decision making to prevent further life threatening deterioration of the patient 's condition and/or to evaluate & treat vital organ system(s) failure or risk of failure. - Discharge Referral Referred to [facility] No
[2019-01-14 08:48] LABS: BASO % 0.1 % (0-2.0); HEMATOCRIT 36.1 % (32.4-45.2); HEMOGLOBIN 12.2 GM/dL (10.7-15.3); LYMPH % 11.2 % (8-40); MCH 29.5 pg (25.7-33.7); MCHC 33.7 g/dl (32.0-36.0); MEAN CELL VOLUME 87.7 fl (80-96); MEAN PLT VOLUME 9.4 fl (7.5-11.1); MONO % 7.7 % (3.8-10.2); PLATELET COUNT 185 K/MM3 (134-434); RBC 4.12 M/mm3 (3.60-5.2); RDW 13.8 % (11.6-15.6); WHITE BLOOD COUNT 13.1 K/mm3 (4.0-10.0)
[2019-01-14 09:03] LABS: ALBUMIN 3.1 g/dl (3.4-5.0); ALK PHOS 62 U/L (45-117); ANION GAP 8 MMOL/L (8-16); BILIRUBIN,TOTAL 0.2 mg/dL (0.2-1); BLOOD UREA NITROGEN 3 mg/dL (7-18); CALCIUM 8.3 mg/dL (8.5-10.1); CHLORIDE 107 mmol/L (98-107); CO2 23 mmol/L (21-32); CREATININE 0.4 mg/dL (0.55-1.3); GLUCOSE,RANDOM 114 mg/dL (74-106); PHOSPHOROUS 2.4 mg/dL (2.5-4.9); POTASSIUM 3.4 mmol/L (3.5-5.1); SGOT/AST 8 U/L (15-37); SGPT/ALT 15 U/L (13-61); SODIUM 139 mmol/L (136-145); TOT PROT 6.6 g/dl (6.4-8.2)
[2019-01-14] MEDS: ENOXAPARIN NA (PORCINE) 40 MG/0.4 ML DISP.SYRIN SQ SCH (09:28)
[2019-01-14] MEDS ORDERED: PT OWN MED DRAWER 7, Y5N ONE (09:30)
[2019-01-14] MEDS: PRENATAL VITAMINS W/ FOLIC ACID TABLET (FP) PO SCH (09:30)
--- NOTE | 2019-01-14 11:06 | EKG ---
Test Reason : Blood Pressure : / mmHG Vent. Rate : 124 BPM Atrial Rate : 124 BPM P-R Int : 126 ms QRS Dur : 094 ms QT Int : 324 ms P-R-T Axes : 073 042 037 degrees QTc Int : 465 ms SINUS TACHYCARDIA WITH FUSION COMPLEXES POSSIBLE LEFT ATRIAL ENLARGEMENT BORDERLINE ECG NO PREVIOUS ECGS AVAILABLE Confirmed by JUAN JOSE HAMMOND, ROSANNA ([id number]) on 01/14/2019 11:06:05 AM Referred By: Confirmed By:ROSANNA INGRAM MD
--- NOTE | 2019-01-14 11:47 | PN ---
Teaching Attending Note Name of Resident: Cedrick Demarco ATTENDING PHYSICIAN STATEMENT I saw and evaluated the patient. I reviewed the resident's note and discussed the case with the resident. I agree with the resident's findings and plan as documented. SUBJECTIVE: Pt seen and examined in the ICU. States breathing continues to improve. Peak flow done at bedside 250. OBJECTIVE: Vital Signs Period Temp Pulse Resp BP Sys/Taylor Pulse Ox Last 24 Hr 98.2 F-98.8 F 79-101 16-23 108-122/56-72 96-100 Intake & Output 01/11/19 01/12/19 01/13/19 01/14/19 23:59 23:59 23:59 23:59 Intake Total 100 1855 3180 1300 Balance 100 1855 3180 1300 Weight 72.575 kg 72.575 kg Gen: NAD at rest Heart: RRR Lung: no wheezes appreciated Abd: soft, nontender Ext: no edema CBC, BMP 01/14/19 08:00 01/14/19 08:00 Active Medications Al Hydroxide/Mg Hydroxide (Mylanta Oral Suspension -) 30 ml PO Q6H PRN PRN Reason: DYSPEPSIA Last Admin: 01/13/19 20:08 Dose: 30 ml Albuterol/Ipratropium (Duoneb -) 1 amp NEB QIDR [facility] Last Admin: 01/14/19 11:10 Dose: 1 amp Enoxaparin Sodium (Lovenox -) 40 mg SQ DAILY [facility] Last Admin: 01/14/19 09:28 Dose: 40 mg Guaifenesin (Robitussin -) 10 ml PO Q6H PRN PRN Reason: COUGH Last Admin: 01/13/19 23:16 Dose: 10 ml Methylprednisolone Sodium Succinate (Solu-Medrol -) 40 mg IVPUSH Q6H-IV ANTONIO Last Admin: 01/14/19 09:28 Dose: 40 mg Potassium Chloride (K-Dur -) 10 meq PO ONCE ONE Stop: 01/14/19 12:01 Multivit/Folic Acid/Iron ( Vitamins (Sjr) -) 1 tab PO DAILY ANTONIO Last Admin: 01/14/19 09:30 Dose: 1 tab ASSESSMENT AND PLAN: Acute Asthma Exacerbation URI 21 weeks - can change steroids to PO prednisone 40mg daily and taper as outpt - inhaled bronchodilators - monitor peak flow - replete lytes - when ready for discharge, should be discharged on prednisone taper and LABA/ ICS - DVT prophylaxis - can monitor on floor or d/c home
[2019-01-14] MEDS ORDERED: POTASSIUM CHLORIDE TABS 10 MEQ TABLET.ER (FP) PO ONE (12:00)
[2019-01-14] MEDS: predniSONE 20 MG TABLET (UD) PO SCH (14:46)
[2019-01-14] MEDS: MAG HYDROX/AL HYDROX/SIMETH 30 ML UNIT-DOSE CUP PO PRN (20:12)
--- NOTE | 2019-01-14 22:02 | PN ---
Progress Note, Physician History of Present Illness: No new complaints - Current Medication List Current Medications: Active Medications Al Hydroxide/Mg Hydroxide (Mylanta Oral Suspension -) 30 ml PO Q6H PRN PRN Reason: DYSPEPSIA Last Admin: 01/14/19 20:12 Dose: 30 ml Albuterol/Ipratropium (Duoneb -) 1 amp NEB RQID [facility] Last Admin: 01/14/19 20:21 Dose: 1 amp Enoxaparin Sodium (Lovenox -) 40 mg SQ DAILY [facility] Guaifenesin (Robitussin -) 10 ml PO Q6H PRN PRN Reason: COUGH Last Admin: 01/13/19 23:16 Dose: 10 ml Prednisone (Deltasone -) 40 mg PO DAILY [facility] Last Admin: 01/14/19 14:46 Dose: 40 mg Multivit/Folic Acid/Iron ( Vitamins (Sjr) -) 1 tab PO DAILY [facility] - Objective Vital Signs: Vital Signs Temperature 97.4 F L 01/14/19 20:33 Pulse Rate 77 01/14/19 20:33 Respiratory Rate 20 01/14/19 20:33 Blood Pressure 102/50 L 01/14/19 20:33 O2 Sat by Pulse Oximetry (%) 96 01/14/19 11:33 Neck: Yes: WNL, Supple Cardiovascular: Yes: WNL, Regular Rate and Rhythm Respiratory: Yes: Wheezes Gastrointestinal: Yes: Normal Bowel Sounds, Soft Labs: CBC, BMP 01/14/19 08:00 01/14/19 08:00 Problem List - Problems (1) Asthma exacerbation Assessment/Plan: Cont prednisone/inhalers DC planning for am Repeat K+ level in am Code(s): J45.901 - UNSPECIFIED ASTHMA WITH (ACUTE) EXACERBATION Qualifiers: Asthma severity: unspecified severity Asthma persistence: unspecified Qualified Code(s): J45.901 - Unspecified asthma with (acute) exacerbation (2) 20 or more weeks gestation of Code(s): SQN2285 -
[2019-01-15 07:38] LABS: HEMATOCRIT 34.5 % (32.4-45.2); HEMOGLOBIN 11.8 GM/dL (10.7-15.3); MCHC 34.3 g/dl (32.0-36.0); MEAN CELL VOLUME 87.4 fl (80-96); PLATELET COUNT 186 K/MM3 (134-434); RBC 3.94 M/mm3 (3.60-5.2); RDW 13.1 % (11.6-15.6)
[2019-01-15] MEDS: ALBUTEROL SO4 2.5/IPRATROPIUM 0.5 INH SOL 3 ML VIAL.NEB. NEB SCH ×3 (08:00→15:43)
[2019-01-15 08:27] LABS: ALBUMIN 2.9 g/dl (3.4-5.0); ALK PHOS 56 U/L (45-117); ANION GAP 8 MMOL/L (8-16); BILIRUBIN,TOTAL 0.2 mg/dL (0.2-1); BLOOD UREA NITROGEN 6 mg/dL (7-18); CALCIUM 8.1 mg/dL (8.5-10.1); CHLORIDE 106 mmol/L (98-107); CO2 24 mmol/L (21-32); CREATININE 0.4 mg/dL (0.55-1.3); GLUCOSE,RANDOM 70 mg/dL (74-106); MAGNESIUM 2.4 mg/dL (1.8-2.4); POTASSIUM 3.4 mmol/L (3.5-5.1); SGOT/AST 6 U/L (15-37); SGPT/ALT 15 U/L (13-61); SODIUM 139 mmol/L (136-145)
[2019-01-15] MEDS: predniSONE 20 MG TABLET (UD) PO SCH (09:27)
[2019-01-15] MEDS: guaiFENesin 200 MG/10 ML 10 ML UNIT-DOSE CUPS PO PRN (09:34)
[2019-01-15] MEDS ORDERED: PRENATAL VITAMINS W/ FOLIC ACID TABLET (FP) PO SCH (10:00)
[2019-01-15] MEDS ORDERED: ENOXAPARIN NA (PORCINE) 40 MG/0.4 ML DISP.SYRIN SQ SCH (10:00)
[2019-01-15 13:45] VITALS: BP 122/80; PULSE 96; TEMP 98.5
== END 2019-01-15 16:30 | disposition home or self-care (01) | DRG 831 ==
LOC: JER 10:05 → JERBED 14:38 → JICU 16:53 → J3W 01-14 13:57
PROVIDERS: ADMIT Internal Medicine; ATTEND Internal Medicine
DX: O26.892 Other specified pregnancy related conditions, second trimester (principal); J96.00 Acute respiratory failure, unspecified whether with hypoxia or hypercapnia; J45.901 Unspecified asthma with (acute) exacerbation; Z3A.25 25 weeks gestation of pregnancy; D72.829 Elevated white blood cell count, unspecified; J06.9 Acute upper respiratory infection, unspecified
CPT/HCPCS: 36415; 76815-TC; 80048; 80053; 83735; 84100; 85025; 85027; 86593; 87086; 87389; 87491; 87591; 87804; 87807; 93005; 93010; 94150; 94640; 94660; 99284-25; J7030

== ENCOUNTER 2019-01-31 23:06 | Emergency (ER) | payer OTHER ==
[2019-01-31] MEDS ORDERED: ALBUTEROL SO4 2.5/IPRATROPIUM 0.5 INH SOL 3 ML VIAL.NEB. NEB ONE ×4 (23:10→23:54)
[2019-01-31 23:23] VITALS: BMI 35.7
--- NOTE | 2019-01-31 23:25 | PDOC ---
History of Present Illness - General Stated Complaint: SIX MONTHS /SOB - History of Present Illness Initial Comments: 01/31/19 23:30 The patient is a female with a PMH of asthma (1 childhood intubation, multiple hospitalizations) at a self-reported 6 months gestation who presents to our ED c/o acute asthma exacerbation. States she went outside in the rain to pickling solution maker her daughter at school and about 20 minutes later she became suddenly short of breath. Attempted on Duo Neb treatment at home with little success prompting her to come to the ED. Recent evaluation by zinc etcher with U/S and no concerning findings. NKDA PMD: Dr. Aburto OB-Barrel Charrer Helper: Dr. Mayers As per EMR patient evaluated in our ED on 01/11/19 for asthma exacerbation and was admitted to the ICU. Previous evaluation in 11/2018 and 12/2018 for asthma exacerbation. Past History - Past Medical History Allergies/Adverse Reactions: Allergies Allergy/AdvReac Type Severity Reaction Status Date / Time Fish Containing Products Allergy Verified 01/31/19 23:23 sea food Allergy Uncoded 01/31/19 23:23 Home Medications: Ambulatory Orders Albuterol 0.083% Nebulizer Gi [Ventolin 0.083% Nebulizer Soln -] 1 neb NEB Q4H PRN 09/07/18 Albuterol Sulfate Inhaler - [Ventolin HFA Inhaler -] 1 - 2 inh PO Q4H 4 Days #1 inhaler 12/21/18 Vit 108/Iron/Folic AC [ One Tablet] 1 tab PO DAILY 01/11/19 predniSONE [Deltasone -] 10 mg PO DAILY #20 tablet 01/15/19 Asthma: Yes Cancer: No Cardiac Disorders: No COPD: No CHF: No Diabetes: No HTN: No Seizures: No Thyroid Disease: No - Surgical History Abdominal Surgery: Yes Neurologic Surgery: No - Immunization History Immunization Up to Date: Yes - Suicide/Smoking/Psychosocial Hx Smoking History: Former smoker Have you smoked in the past 12 months: No If you are a former smoker, when did you quit?: X2 YEARS Hx Alcohol Use: No Drug/Substance Use Hx: No Substance Use Type: Alcohol Hx Substance Use Treatment: No Review of Systems - Review of Systems Constitutional: No: Chills, Fever Respiratory: Yes: Shortness of Breath. No: Cough Cardiac (ROS): No: Chest Pain, Lightheadedness, Palpitations, Syncope ABD/GI: No: Constipated, Diarrhea, Nausea, Vomiting *Physical Exam - Physical Exam General Appearance: Yes: Nourished, Appropriately Dressed HEENT: positive: Normal Voice, Hearing Grossly Normal Neck: positive: Trachea midline, Supple Respiratory/Chest: positive: Other (scattered wheezes, tachypneic) Cardiovascular: positive: S1, S2. negative: Edema ED Treatment Course - LABORATORY CBC & Chemistry Diagram: 01/31/19 23:10 01/31/19 23:10 Medical Decision Making - Medical Decision Making 01/31/19 23:35 23 year old female with asthma exacerbation. BP 140/63 @ presentation. Will give Duo Nebs, Solumedrol, Mg. Reassess. Patient will require discharge to OB for further evaluation following stabilization. Patient to sign consent for baby shield CXR. 01/31/19 23:42 S/p Duo Neb, patient breathing comfortably, non-tachypneic BP 113/64 01/31/19 23:43 As patient is normotensive with repeat BP, decreased clinical suspicion for pre- eclamptic picture 02/01/19 00:22 02/01/19 00:27 Repeat BP 116/51 02/01/19 00:31 My read of CXR shows no infiltrate/consolidation, clear costophrenic angles 02/01/19 00:33 Will discharge patient to OB with referral to pulmonology as patient has h/o monthly asthma exacerbations this calendar year likely will require asthma medication regimen adjustment. *DC/Admit/Observation/Transfer Diagnosis at time of Disposition: Asthma exacerbation - Discharge Dispostion Disposition: HOME Condition at time of disposition: Good Decision to Admit order: No - Referrals Referrals: Alek Aburto MD [Primary Care Provider] - Jeovanny Edwards MD, MD [Staff Physician] - Jessie Hammond MD [Staff Physician] - - Patient Instructions Additional Instructions: You are being discharged to the OB-Barrel Char[facility] Helper service for further evaluation. Please follow-up with your primary care doctor in the next 1 week. We have provided a referral to a ekg monitor. Please make an appointment for further evaluation of your asthma medication regimen. Your care is not complete until you are evaluated by OB-Barrel Charrer Helper, a ekg monitor and your primary care doctor. Return to the Emergency Department for any new/worsening/concerning symptoms. - Post Discharge Activity
[2019-01-31] MEDS ORDERED: MAGNESIUM SULF 50% (8.12 MEQ/2 ML-1 GM VIAL) IVPB ONE (23:26)
[2019-01-31] MEDS ORDERED: methylPREDNISolone NA SUCC 125 MG/2 ML VIAL IVPUSH ONE (23:26)
--- NOTE | 2019-01-31 23:34 | PDOC ---
Attending Attestation - HPI HPI: The patient is a 23 year old female (currently 6 months ), with a significant PMH of asthma (recurrent hospital visits for exacerbation), who presents to the emergency department today complaining of asthma exacerbation for one day. She reports feeling short of breath after stepping out in the rain earlier today to apple picker her child from school. Patient endorses trying a Duoneb treatment at home with minimal relief. She reports a history of similar symptoms when the weather is poor. The patient denies chest pain, headache and dizziness. Denies fever, chills, nausea, vomit, diarrhea and constipation. Denies dysuria, frequency, urgency and hematuria. Allergies: Fish containing products, sea food Past surgical history: None reported Social history: Former smoker (cessation year ago) PCP: Dr Alek Aburto 01/31/19 23:55 - Medical Decision Making Documentation prepared by RONA Lopez, acting as medical transcription supervisor for Migue Gama MD. 01/31/19 23:55 <Lisseth Koo - Last Filed: 01/31/19 23:55> - Resident Resident Name: Carine Wynn - ED Attending Attestation I have performed the following: I have examined & evaluated the patient, The case was reviewed & discussed with the resident, I agree w/resident's findings & plan, Exceptions are as noted - Physicial Exam PE: 02/01/19 00:20 Pt visibly distressed, AOx3 Neck supple Tachypneic, no retractions, +wheezing in all lung villanueva, increased wob - Medical Decision Making 02/01/19 00:21 Asthma exacerbation in 24w preg patient, initial bp with systolic >140 that normalized as symptoms improved, in multiparous pt w/o hx of ecclampsia, w/o fmhx of eclampsia Pt given duonebs, steroids, MgSO4 dosed for asthma rapid, significant improvement in presentation, subjective symptoms, exam, vital signs If adequate control of acute resp symptoms, will send to OB for further eval 02/01/19 00:43 Patient is well appearing, with improvement in exam Will send to Ob for continuation of clinical course <Migue Gama - Last Filed: 02/01/19 00:43>
[2019-01-31] MEDS ORDERED: methylPREDNISolone NA SUCC 125 MG/2 ML VIAL ONE (23:39)
[2019-01-31] MEDS ORDERED: MAGNESIUM 1GM/D5W - 2 GM/200 ML IVPB IVPB ONE (23:39)
[2019-01-31] MEDS ORDERED: ONDANSETRON 4 MG/2 ML VIAL IVPUSH ONE (23:41)
[2019-01-31] MEDS ORDERED: ONDANSETRON 4 MG/2 ML VIAL ONE (23:41)
[2019-01-31 23:43] LABS: ARTERIAL BLD GAS O2 SATURATION 97.5 % (95-98); ARTERIAL BLOOD GAS BASE EXCESS -4.3 meq/l (-2-2); ARTERIAL BLOOD GAS PCO2 33.4 mmHg (35-45); ARTERIAL BLOOD GAS PO2 101 mmHg (80-105); ARTERIAL BLOOD GAS pH 7.38 (7.35-7.45); CARBOXYHEMOGLOBIN 0.8 % (0-2)
[2019-01-31] MEDS: ALBUTEROL SO4 2.5/IPRATROPIUM 0.5 INH SOL 3 ML VIAL.NEB. NEB SCH ×2 (23:45→23:55)
[2019-01-31 23:46] LABS: VENOUS PC02 34.2 mmHg (41-51); VENOUS PH 7.38 (7.31-7.41); VENOUS PO2 61.1 mmHg (30-40)
[2019-01-31 23:51] LABS: ALLENS TEST POSITIVE
[2019-02-01 00:07] LABS: BASO % 0.3 % (0-2.0); EOS % 1.6 % (0-4.5); HEMATOCRIT 36.8 % (32.4-45.2); LYMPH % 7.6 % (8-40); MCH 30.6 pg (25.7-33.7); MCHC 35.3 g/dl (32.0-36.0); MEAN CELL VOLUME 86.7 fl (80-96); MEAN PLT VOLUME 9.2 fl (7.5-11.1); MONO % 6.9 % (3.8-10.2); NEUT % 83.6 % (42.8-82.8); PLATELET COUNT 190 K/MM3 (134-434); RBC 4.25 M/mm3 (3.60-5.2); RDW 13.2 % (11.6-15.6); WHITE BLOOD COUNT 13.2 K/mm3 (4.0-10.0)
[2019-02-01 00:11] LABS: INR 1.07 (0.83-1.09); PROTHROMBIN TIME (PATIENT) 12.6 SEC (9.7-13.0)
[2019-02-01 00:13] LABS: ACTIVATED PTT 31.2 SECONDS (25.2-36.5)
[2019-02-01 01:46] LABS: ALBUMIN 3.4 g/dl (3.4-5.0); ALK PHOS 77 U/L (45-117); ANION GAP 10 MMOL/L (8-16); BILIRUBIN,TOTAL 0.6 mg/dL (0.2-1); BLOOD UREA NITROGEN 4 mg/dL (7-18); CALCIUM 8.3 mg/dL (8.5-10.1); CHLORIDE 107 mmol/L (98-107); CO2 20 mmol/L (21-32); CREATININE 0.4 mg/dL (0.55-1.3); GLUCOSE,RANDOM 120 mg/dL (74-106); POTASSIUM 3.6 mmol/L (3.5-5.1); SGOT/AST 14 U/L (15-37); SGPT/ALT 18 U/L (13-61); SODIUM 137 mmol/L (136-145); TOT PROT 7.1 g/dl (6.4-8.2)
[2019-02-01 02:39] VITALS: BP 99/57; PULSE 94; TEMP 99.3
--- NOTE | 2019-02-01 11:00 | EKG ---
Test Reason : Blood Pressure : / mmHG Vent. Rate : 103 BPM Atrial Rate : 103 BPM P-R Int : 124 ms QRS Dur : 078 ms QT Int : 358 ms P-R-T Axes : 058 038 019 degrees QTc Int : 468 ms POOR DATA QUALITY, INTERPRETATION MAY BE ADVERSELY AFFECTED SINUS TACHYCARDIA WITH OCCASIONAL PREMATURE VENTRICULAR COMPLEXES OTHERWISE NORMAL ECG Confirmed by ALYSSA BAH MD ([id number]) on 02/01/2019 11:00:04 AM Referred By: Confirmed By:ALYSSA BAH MD
== END 2019-02-01 02:45 | disposition home or self-care (01) ==
LOC: JER 23:06
PROC: 3E0F7GC Introduction of Other Therapeutic Substance into Respiratory Tract, Via Natural or Artificial Opening (ICD-10-PCS; principal; 2019-01-31)
PROC: 3E0F7GC Introduction of Other Therapeutic Substance into Respiratory Tract, Via Natural or Artificial Opening (ICD-10-PCS; 2019-01-31)
PROC: 3E033GC Introduction of Other Therapeutic Substance into Peripheral Vein, Percutaneous Approach (ICD-10-PCS; 2019-01-31)
PROC: 3E033GC Introduction of Other Therapeutic Substance into Peripheral Vein, Percutaneous Approach (ICD-10-PCS; 2019-01-31)
PROC: 3E0333Z Introduction of Anti-inflammatory into Peripheral Vein, Percutaneous Approach (ICD-10-PCS; 2019-01-31)
DX: O26.892 Other specified pregnancy related conditions, second trimester (principal); O99.512 Diseases of the respiratory system complicating pregnancy, second trimester; J45.901 Unspecified asthma with (acute) exacerbation; Z3A.24 24 weeks gestation of pregnancy
CPT/HCPCS: 36415; 36600; 71045-TC-FY; 80053; 82375; 82803; 83050; 84702; 85025; 85610; 85730; 86850; 86900; 86901; 93005; 93010; 99283-25

== ENCOUNTER 2019-02-01 14:17 | Inpatient (IN) | payer OTHER ==
--- NOTE | 2019-02-01 14:21 | PDOC ---
Rapid Medical Evaluation Time Seen by Provider: 02/01/19 14:18 Medical Evaluation: Allergies Allergy/AdvReac Type Severity Reaction Status Date / Time Fish Containing Products Allergy Difficulty Verified 02/01/19 00:58 Breathing sea food Allergy Difficulty Uncoded 02/01/19 00:58 Breathing 02/01/19 14:18 I have performed a brief in-person evaluation of this patient. The patient presents with a chief complaint of: SOB just d/c'd earlier today with asthma 6 months at this time. Pertinent physical exam findings:duamol GODOY I have ordered the following: kimberly lopez 02/01/19 14:20 Discharge Disposition - Diagnosis Asthma exacerbation - Referrals - Patient Instructions - Post Discharge Activity
[2019-02-01] MEDS: ALBUTEROL SO4 2.5/IPRATROPIUM 0.5 INH SOL 3 ML VIAL.NEB. NEB SCH ×4 (14:32→15:17)
[2019-02-01] MEDS ORDERED: ALBUTEROL SO4 2.5/IPRATROPIUM 0.5 INH SOL 3 ML VIAL.NEB. NEB ONE (15:03)
--- NOTE | 2019-02-01 16:08 | PDOC ---
History of Present Illness - General Chief Complaint: Asthma Stated Complaint: ASTHMA / SOB Time Seen by Provider: 02/01/19 14:18 History Source: Patient Exam Limitations: No Limitations Past History - Travel Traveled outside of the country in the last 30 days: No Close contact w/someone who was outside of country & ill: No - Past Medical History Allergies/Adverse Reactions: Allergies Allergy/AdvReac Type Severity Reaction Status Date / Time Fish Containing Products Allergy Difficulty Verified 02/01/19 00:58 Breathing sea food Allergy Difficulty Uncoded 02/01/19 00:58 Breathing Home Medications: Ambulatory Orders Albuterol 0.083% Nebulizer Gi [Ventolin 0.083% Nebulizer Soln -] 1 neb NEB Q4H PRN 09/07/18 Albuterol Sulfate Inhaler - [Ventolin HFA Inhaler -] 1 - 2 inh PO Q4H 4 Days #1 inhaler 12/21/18 Vit 108/Iron/Folic AC [ One Tablet] 1 tab PO DAILY 01/11/19 Asthma: Yes Cancer: No Cardiac Disorders: No COPD: No CHF: No Diabetes: No HTN: No Seizures: No Thyroid Disease: No - Surgical History Abdominal Surgery: Yes Neurologic Surgery: No - Immunization History Immunization Up to Date: Yes - Suicide/Smoking/Psychosocial Hx Smoking History: Never smoked Have you smoked in the past 12 months: No If you are a former smoker, when did you quit?: X2 YEARS Information on smoking cessation initiated: No Hx Alcohol Use: No Drug/Substance Use Hx: No Substance Use Type: Alcohol Hx Substance Use Treatment: No Review of Systems - Review of Systems Able to Perform ROS?: Yes Comments:: 02/01/19 14:50 CONSTITUTIONAL: Absent: fever, chills, diaphoresis, generalized weakness, malaise, loss of appetite HEENT: Absent: rhinorrhea, nasal congestion, throat pain, throat swelling, difficulty swallowing, mouth swelling, ear pain, eye pain, visual Changes CARDIOVASCULAR: Absent: chest pain, loss of consciousness, palpitations, irregular heart rate, peripheral edema RESPIRATORY: Present: wheezing, cough, shortness of breath Absent: dyspnea with exertion, orthopnea, stridor, hemoptysis GASTROINTESTINAL: Absent: abdominal pain, abdominal distension, nausea, vomiting, diarrhea, constipation, melena, hematochezia GENITOURINARY: Absent: dysuria, frequency, urgency, hesitancy, hematuria, flank pain, genital pain MUSCULOSKELETAL: Absent: myalgia, arthralgia, joint swelling SKIN: Absent: rash, itching, pallor NEUROLOGIC: Absent: headache, focal weakness or paresthesias, dizziness, unsteady gait, seizure, mental status changes, bladder or bowel incontinence PSYCHIATRIC: Absent: anxiety, depression, suicidal or homicidal ideation, hallucinations. Is the patient limited Wallisian proficient: No *Physical Exam - Vital Signs Last Vital Signs Temp Pulse Resp BP Pulse Ox 99 F 113 H 20 134/69 97 02/01/19 14:19 02/01/19 14:19 02/01/19 14:19 02/01/19 14:19 02/01/19 14:19 - Physical Exam Comments: 02/01/19 14:51 GENERAL: Well developed, well nourished. Awake and alert. No acute distress. HEENT: Normocephalic, atraumatic. PERRLA, EOMI. No conjunctival pallor. Sclera are non- icteric. Moist mucous membranes. Oropharynx is clear. NECK: Supple. Full ROM. No JVD. Carotid pulses 2+ and symmetric, without bruits. No thyromegaly. No lymphadenopathy. CARDIOVASCULAR: Regular rate and rhythm. No murmurs, rubs, or gallops. Distal pulses are 2+ and symmetric. PULMONARY: No evidence of respiratory distress. Lungs with diffuse expiratory wheezing b/ l. EXTREMITIES: No cyanosis. No clubbing. No edema. No calf tenderness. SKIN: Warm and dry. Normal capillary refill. No rashes. No jaundice. NEUROLOGICAL: Alert, awake, appropriate. Cranial nerves 2-12 intact. No deficits to light touch and temperature in face, upper extremities and lower extremities. No motor deficits in the in face, upper extremities and lower extremities. Normoreflexic in the upper and lower extremities. Normal speech. Toes are down- going bilaterally. Gait is normal without ataxia. PSYCHIATRIC: Cooperative. Good eye contact. Appropriate mood and affect. Moderate Sedation - Procedure Monitoring Vital Signs: Procedure Monitoring Vital Signs Temperature 99 F 02/01/19 14:19 Pulse Rate 113 H 02/01/19 14:19 Respiratory Rate 20 02/01/19 14:19 Blood Pressure 134/69 02/01/19 14:19 O2 Sat by Pulse Oximetry (%) 97 02/01/19 14:19 Medical Decision Making - Medical Decision Making 02/01/19 16:11 The patient is a 23-year-old female with past medical history of asthma, currently 6 months , who presents to the ER today for an asthma exacerbation. Patient was seen in our ED last night for similar symptoms. She was given duo nebs, Solu-Medrol and magnesium with relief of her symptoms. She was discharged home. Today she states that the symptoms came right back and she feels that she is wheezing. She states that she walks and gets short of breath. Denies fevers, chills, nausea, vomiting, chest pain, frequency, urgency and vaginal bleeding. FOOD SERVICE CLERK: Dr. Curry A/P: Asthma exacerbation. Patient with diffuse expiratory wheezing bilaterally. Patient given 3 DuoNeb's in fast track with little relief of symptoms. Still with diffuse expiratory wheeze; anticipate will need more medication and possible admission. Pt needs higher level care, will transfer to main ED at this time Dr. Pedro, Dr. Rene and RN Shannon aware. Pt to go to bed 8 *DC/Admit/Observation/Transfer Diagnosis at time of Disposition: Asthma exacerbation - Referrals - Patient Instructions - Post Discharge Activity
--- NOTE | 2019-02-01 16:09 | PDOC ---
History of Present Illness - General Chief Complaint: Asthma Stated Complaint: ASTHMA / SOB Time Seen by Provider: 02/01/19 14:18 - History of Present Illness Initial Comments: 02/01/19 16:08 Ms. Contreras is a 23 yo female, , 6 months , w/ pmh of asthma (for which she has required ICU admission in the past) who presents for evaluation of asthma exacerbation. Patient was evaluated yesterday evening for same process however represents as she was not improving and continues to feel wheezy as she walks around. Patient reports symptoms started yesterday morning prompting her visit and she was treated with breathing treatments as well as 125 methylprednisolone. Patient also endorses an intermittent dry cough for several days. Patient was already evaluated in triage and given 3 breathing treatments. The patient denies chest pain, headache and dizziness. Denies fever, chills, nausea, vomit, diarrhea and constipation. Denies dysuria, frequency, urgency and hematuria. Allergies: NKDA Past Surgical History: None reported Social History: Former smoker (cessation 1 year ago) PCP: Dr. Devan Aburto Fluxer: Dr. Hammond Past History - Past Medical History Allergies/Adverse Reactions: Allergies Allergy/AdvReac Type Severity Reaction Status Date / Time Fish Containing Products Allergy Difficulty Verified 02/01/19 00:58 Breathing sea food Allergy Difficulty Uncoded 02/01/19 00:58 Breathing Home Medications: Ambulatory Orders Albuterol 0.083% Nebulizer Gi [Ventolin 0.083% Nebulizer Soln -] 1 neb NEB Q4H PRN 09/07/18 Albuterol Sulfate Inhaler - [Ventolin HFA Inhaler -] 1 - 2 inh PO Q4H 4 Days #1 inhaler 12/21/18 Vit 108/Iron/Folic AC [ One Tablet] 1 tab PO DAILY 01/11/19 Asthma: Yes Cancer: No Cardiac Disorders: No COPD: No CHF: No Diabetes: No HTN: No Seizures: No Thyroid Disease: No - Surgical History Abdominal Surgery: Yes Neurologic Surgery: No - Immunization History Immunization Up to Date: Yes - Suicide/Smoking/Psychosocial Hx Smoking History: Never smoked Have you smoked in the past 12 months: No If you are a former smoker, when did you quit?: X2 YEARS Information on smoking cessation initiated: No Hx Alcohol Use: No Drug/Substance Use Hx: No Substance Use Type: Alcohol Hx Substance Use Treatment: No Review of Systems - Review of Systems Comments:: 02/01/19 16:12 GENERAL/CONSTITUTIONAL: No fever or chills. No weakness. HEAD, EYES, EARS, NOSE AND THROAT: No change in vision. No ear pain or discharge. No sore throat. CARDIOVASCULAR: No chest pain RESPIRATORY: +Shortness of breath with wheezing upon exertion and cough as described. GASTROINTESTINAL: No nausea, vomiting, diarrhea or constipation. GENITOURINARY: No dysuria, frequency, or change in urination. MUSCULOSKELETAL: No joint or muscle swelling or pain. No neck or back pain. SKIN: No rash NEUROLOGIC: No headache, vertigo, loss of consciousness, or change in strength/ sensation. ENDOCRINE: No increased thirst. No abnormal weight change HEMATOLOGIC/LYMPHATIC: No anemia, easy bleeding, or history of blood clots. ALLERGIC/IMMUNOLOGIC: No hives or skin allergy. *Physical Exam - Vital Signs Last Vital Signs Temp Pulse Resp BP Pulse Ox 99 F 113 H 20 134/69 97 02/01/19 14:19 02/01/19 14:19 02/01/19 14:19 02/01/19 14:19 02/01/19 14:19 - Physical Exam Comments: 02/01/19 16:12 GENERAL: Awake, alert, and fully oriented, in no acute distress HEAD: No signs of trauma, normocephalic, atraumatic EYES: PERRLA, EOMI, sclera anicteric, conjunctiva clear ENT: Auricles normal inspection, hearing grossly normal, nares patent, oropharynx clear without exudates. Moist mucosa NECK: Normal ROM, supple, no lymphadenopathy, JVD, or masses LUNGS: +JENISE inspiratory and expiratory wheezing. No distress, speaks full sentences HEART: Regular rate and rhythm, normal S1 and S2, no murmurs, rubs or gallops, peripheral pulses normal and equal bilaterally. ABDOMEN: Soft, nontender, normoactive bowel sounds. No guarding, no rebound. No masses EXTREMITIES: Normal inspection, Normal range of motion, no edema. No clubbing or cyanosis. NEUROLOGICAL: Cranial nerves II through XII grossly intact. Normal speech, normal gait, no focal sensorimotor deficits SKIN: Warm, Dry, normal turgor, no rashes or lesions noted. Moderate Sedation - Procedure Monitoring Vital Signs: Procedure Monitoring Vital Signs Temperature 99 F 02/01/19 14:19 Pulse Rate 113 H 02/01/19 14:19 Respiratory Rate 20 02/01/19 14:19 Blood Pressure 134/69 02/01/19 14:19 O2 Sat by Pulse Oximetry (%) 97 02/01/19 14:19 ED Treatment Course - LABORATORY CBC & Chemistry Diagram: 02/01/19 17:00 02/01/19 17:00 - Medications Given in the ED: ED Medications Discontinued Medications Generic Name Dose Route Start Last Admin Trade Name Porsha PRN Reason Stop Dose Admin Albuterol/Ipratropium 1 amp 02/01/19 14:30 02/01/19 15:17 Duoneb - NEB 02/01/19 15:16 1 amp Q15M ANTONIO Administration Medical Decision Making - Medical Decision Making 02/01/19 17:32 Ms. Contreras is a 23 yo female w/ pmh as described who represents for asthma exacerbation. Patient grossly well appearing however given continued symptoms despite multiple rounds of breathing treatments and steroids with current further investigation done with EKG and labs as below. Patient EKG negative, labs grossly wnl. CXR withheld given patient's status. Will admit patient for observation and further asthma treatment as needed. Laboratory Results - last 24 hr 02/01/19 02/01/19 02/01/19 15:03 17:00 17:00 WBC 12.9 H RBC 4.15 Hgb 12.7 Hct 36.5 MCV 87.9 MCH 30.6 MCHC 34.8 RDW 13.6 Plt Count 173 MPV 8.8 Absolute Neuts (auto) 10.1 H Neutrophils % 78.7 Lymphocytes % 9.9 D Monocytes % 11.0 H Eosinophils % 0.2 D Basophils % 0.2 Nucleated RBC % 0 Sodium 136 Potassium 3.4 L Chloride 107 Carbon Dioxide 21 Anion Gap 8 BUN 5 L Creatinine 0.4 L Creat Clearance w eGFR 196.10 Random Glucose 82 Calcium 8.4 L Total Bilirubin 0.3 AST 16 ALT 18 Alkaline Phosphatase 71 Total Protein 7.0 Albumin 3.2 L Influenza A (Rapid) Negative Influenza B (Rapid) Negative *DC/Admit/Observation/Transfer Diagnosis at time of Disposition: Asthma exacerbation - Referrals Referrals: lAek Aburto MD [Primary Care Provider] - - Patient Instructions - Post Discharge Activity
[2019-02-01] MEDS ORDERED: methylPREDNISolone NA SUCC 40 MG/1 ML VIAL IVPUSH ONE (16:33)
[2019-02-01] MEDS ORDERED: methylPREDNISolone NA SUCC 40 MG/1 ML VIAL ONE (17:13)
[2019-02-01 17:26] LABS: BASO % 0.2 % (0-2.0); EOS % 0.2 % (0-4.5); HEMATOCRIT 36.5 % (32.4-45.2); HEMOGLOBIN 12.7 GM/dL (10.7-15.3); LYMPH % 9.9 % (8-40); MCH 30.6 pg (25.7-33.7); MCHC 34.8 g/dl (32.0-36.0); MEAN CELL VOLUME 87.9 fl (80-96); MEAN PLT VOLUME 8.8 fl (7.5-11.1); NEUT % 78.7 % (42.8-82.8); PLATELET COUNT 173 K/MM3 (134-434); RBC 4.15 M/mm3 (3.60-5.2); RDW 13.6 % (11.6-15.6); WHITE BLOOD COUNT 12.9 K/mm3 (4.0-10.0)
[2019-02-01 17:47] LABS: ALBUMIN 3.2 g/dl (3.4-5.0); ALK PHOS 71 U/L (45-117); ANION GAP 8 MMOL/L (8-16); BILIRUBIN,TOTAL 0.3 mg/dL (0.2-1); BLOOD UREA NITROGEN 5 mg/dL (7-18); CALCIUM 8.4 mg/dL (8.5-10.1); CHLORIDE 107 mmol/L (98-107); CO2 21 mmol/L (21-32); CREATININE 0.4 mg/dL (0.55-1.3); GLUCOSE,RANDOM 82 mg/dL (74-106); POTASSIUM 3.4 mmol/L (3.5-5.1); SGOT/AST 16 U/L (15-37); SGPT/ALT 18 U/L (13-61); SODIUM 136 mmol/L (136-145)
[2019-02-01 19:22] LABS: EPI CELLS 34.1 /HPF (0-5); URINE APPEARANCE CLOUDY; URINE BACTERIA 791.784 /hpf (NEGATIVE); URINE BILIRUBIN NEGATIVE (<2.0 mg/dL); URINE CASTS 32 /hpf (0-8); URINE COLOR DK YELLOW; URINE GLUCOSE (UA) NEGATIVE (NEGATIVE); URINE KETONE 4+ (NEGATIVE); URINE LEUK ESTERASE NEGATIVE (NEGATIVE); URINE NITRITE NEGATIVE (NEGATIVE); URINE PROTEIN 1+ (NEGATIVE); URINE RBC 3 /hpf (0-4); URINE WBC 7 /hpf (0-5)
[2019-02-02] MEDS ORDERED: ALBUTEROL SO4 2.5/IPRATROPIUM 0.5 INH SOL 3 ML VIAL.NEB. NEB PRN (02:45)
[2019-02-02] MEDS: methylPREDNISolone NA SUCC 40 MG/1 ML VIAL IVPUSH SCH ×4 (02:46→21:31)
--- NOTE | 2019-02-02 04:21 | PDOC ---
Attending Attestation - Resident Resident Name: David Krishnan - ED Attending Attestation I have performed the following: I have examined & evaluated the patient, The case was reviewed & discussed with the resident, I agree w/resident's findings & plan, Exceptions are as noted - HPI HPI: 02/02/19 04:19 Agree with resident HPI - Physicial Exam PE: 02/02/19 04:19 Agree with resident exam - Medical Decision Making 02/01/19 18:19 23yo F, hz asthma (prev ICU admission for asthma) presents to the ED for the second time in 2 days with asthma exacerbation. Pt is s/p nebs, Mg, methylpred during 1st visit. Today, she has received nebs, 60mg methylpred, continues to have wheezing. No crackles or infectious sxs, thus holding off on CXR for now. Pt Admitted for observation to Dr. Murphy.
[2019-02-02 08:12] LABS: BASO % 0.1 % (0-2.0); HEMATOCRIT 34.8 % (32.4-45.2); HEMOGLOBIN 11.9 GM/dL (10.7-15.3); MCH 29.9 pg (25.7-33.7); MCHC 34.3 g/dl (32.0-36.0); MEAN CELL VOLUME 87.2 fl (80-96); NEUT % 90.9 % (42.8-82.8); PLATELET COUNT 183 K/MM3 (134-434); RBC 3.98 M/mm3 (3.60-5.2); RDW 13.1 % (11.6-15.6); WHITE BLOOD COUNT 9.9 K/mm3 (4.0-10.0)
[2019-02-02 08:23] LABS: ALBUMIN 3.2 g/dl (3.4-5.0); ALK PHOS 69 U/L (45-117); ANION GAP 11 MMOL/L (8-16); BILIRUBIN,TOTAL 0.4 mg/dL (0.2-1); BLOOD UREA NITROGEN 5 mg/dL (7-18); CALCIUM 8.1 mg/dL (8.5-10.1); CHLORIDE 106 mmol/L (98-107); CO2 18 mmol/L (21-32); CREATININE 0.4 mg/dL (0.55-1.3); GLUCOSE,RANDOM 90 mg/dL (74-106); SGOT/AST 15 U/L (15-37); SGPT/ALT 18 U/L (13-61); SODIUM 135 mmol/L (136-145); TOT PROT 6.9 g/dl (6.4-8.2)
[2019-02-02 11:01] VITALS: BMI 34.9
[2019-02-02] MEDS ORDERED: ALBUTEROL SO4 0.083% IH SOL 2.5 MG/3 ML VIAL.NEB. NEB PRN (13:49)
--- NOTE | 2019-02-02 13:57 | CON.PULM ---
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 Patient reports symptoms started Th morning prompting her visit to ED Patient also endorses an intermittent dry cough for several days. Patient was evaluated in triage and given 3 breathing treatments, she was referred for admission. 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 No: CVA, Migraine, Seizure Pulmonary: Yes: Asthma (takes albuterol or nebulizer treatment at home .H/o AE Asthma during last also ) Gastrointestinal: Yes: Other (declines GI problems ) Hepatobiliary: Yes: Other (declines ) Renal/: Yes: Other (denies h/o urinary symptoms or UTI in past) ...LMP: 07/29/18 ...: Yes (6 months) Infectious Disease: Yes: Other (declines ) - Past Surgical History Past Surgical History: Yes: (03/26, 12/30, 05/30 at [facility] ) - Alcohol/Substance Use Hx Alcohol Use: No History of Substance Use: reports: None - Smoking History Smoking history: Never smoked Have you smoked in the past 12 months: No If you are a former smoker, when did you quit?: X2 YEARS - Social History History of Recent Travel: No Home Medications - Allergies Allergies/Adverse Reactions: Allergies Allergy/AdvReac Type Severity Reaction Status Date / Time Fish Containing Products Allergy Difficulty Verified 02/01/19 00:58 Breathing sea food Allergy Difficulty Uncoded 02/01/19 00:58 Breathing - Home Medications Home Medications: Ambulatory Orders Albuterol 0.083% Nebulizer Gi [Ventolin 0.083% Nebulizer Soln -] 1 neb NEB Q4H PRN 09/07/18 Albuterol Sulfate Inhaler - [Ventolin HFA Inhaler -] 1 - 2 inh PO Q4H 4 Days #1 inhaler 12/21/18 Vit 108/Iron/Folic AC [ One Tablet] 1 tab PO DAILY 03/01/19 Family Disease History - Family Disease History Family History: Unremarkable Review of Systems - Review of Systems Cardiovascular: denies: Chest Pain Respiratory: reports: Cough, Exercise Intolerance, SOB on Exertion, Wheezing. denies: Hemoptysis Physical Exam Vital Sings: Vital Signs Temperature 99 F 02/02/19 10:53 Pulse Rate 111 H 02/02/19 10:53 Respiratory Rate 20 02/02/19 10:53 Blood Pressure 121/61 02/02/19 10:53 O2 Sat by Pulse Oximetry (%) 97 02/01/19 14:19 Constitutional: Yes: Calm Eyes: Yes: EOM Intact HENT: Yes: Normocephalic Neck: Yes: Trachea Midline Cardiovascular: Yes: Regular Rate and Rhythm Respiratory: Yes: Cough, Wheezes Gastrointestinal: Yes: Other ( uterus) Musculoskeletal: Yes: WNL Extremities: Yes: WNL Labs: CBC, BMP 02/02/19 06:30 02/02/19 06:30 Problem List - Problems (1) Asthma exacerbation Code(s): J45.901 - UNSPECIFIED ASTHMA WITH (ACUTE) EXACERBATION (2) Code(s): Z34.90 - ENCNTR FOR SUPRVSN OF NORMAL , UNSP, UNSP TRIMESTER Assessment/Plan IV MEDROL ICS/LABA/LURDES/O2 SUPPLEMENTATION WILL FOLLOW Ann Marie HINES MD
[2019-02-02] MEDS: BUDESONIDE/FORMETEROL FUMARATE 80/4.5 mcg INHALER IH SCH ×2 (15:00→21:35)
[2019-02-02] MEDS: ALBUTEROL SO4 0.083% IH SOL 2.5 MG/3 ML VIAL.NEB. NEB SCH ×2 (15:32→21:35)
--- NOTE | 2019-02-02 16:39 | EKG ---
Test Reason : Blood Pressure : / mmHG Vent. Rate : 092 BPM Atrial Rate : 092 BPM P-R Int : 120 ms QRS Dur : 078 ms QT Int : 380 ms P-R-T Axes : 030 012 023 degrees QTc Int : 469 ms NORMAL SINUS RHYTHM NORMAL ECG WHEN COMPARED WITH ECG OF 01-FEB-2019 00:26, PREMATURE VENTRICULAR COMPLEXES ARE NO LONGER PRESENT Confirmed by CARITO ROQUE MD ([id number]) on 02/02/2019 4:38:50 PM Referred By: Confirmed By:CARITO ROQUE MD
[2019-02-02] MEDS ORDERED: PT OWN MED DRAWER 7, Y5N ONE (21:36)
--- NOTE | 2019-02-02 21:48 | HP ---
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 No: CVA, Migraine, Seizure Pulmonary: Yes: Asthma (takes albuterol or nebulizer treatment at home .H/o AE Asthma during last also ) Gastrointestinal: Yes: Other (declines GI problems ) Hepatobiliary: Yes: Other (declines ) Renal/: Yes: Other (denies h/o urinary symptoms or UTI in past) ...LMP: 07/29/18 ...: Yes (6 months) ...: 4 ...Para: 3 Infectious Disease: Yes: Other (declines ) - Past Surgical History Past Surgical History: Yes: (03/26, 12/30, 05/30 at [facility] ) - Smoking History Smoking history: Never smoked Have you smoked in the past 12 months: No If you are a former smoker, when did you quit?: X2 YEARS - Alcohol/Substance Use Hx Alcohol Use: No History of Substance Use: reports: None - Social History History of Recent Travel: No Home Medications - Allergies Allergies/Adverse Reactions: Allergies Allergy/AdvReac Type Severity Reaction Status Date / Time Fish Containing Products Allergy Difficulty Verified 02/01/19 00:58 Breathing sea food Allergy Difficulty Uncoded 02/01/19 00:58 Breathing - Home Medications Home Medications: Ambulatory Orders Albuterol 0.083% Nebulizer Gi [Ventolin 0.083% Nebulizer Soln -] 1 neb NEB Q4H PRN 09/07/18 Albuterol Sulfate Inhaler - [Ventolin HFA Inhaler -] 1 - 2 inh PO Q4H 4 Days #1 inhaler 12/21/18 Vit 108/Iron/Folic AC [ One Tablet] 1 tab PO DAILY 01/11/19 Physical Examination Vital Signs: Vital Signs Temperature 98.6 F 02/02/19 18:00 Pulse Rate 92 H 02/02/19 18:00 Respiratory Rate 18 02/02/19 18:00 Blood Pressure 121/71 02/02/19 18:00 O2 Sat by Pulse Oximetry (%) 97 02/01/19 14:19 Labs: CBC, BMP 02/02/19 06:30 02/02/19 06:30
[2019-02-03] MEDS: ALBUTEROL SO4 0.083% IH SOL 2.5 MG/3 ML VIAL.NEB. NEB SCH ×6 (00:10→20:09)
[2019-02-03] MEDS ORDERED: MAG HYDROX/AL HYDROX/SIMETH 30 ML UNIT-DOSE CUP PO ONE (01:49)
[2019-02-03] MEDS: methylPREDNISolone NA SUCC 40 MG/1 ML VIAL IVPUSH SCH ×4 (02:22→21:33)
[2019-02-03] MEDS ORDERED: PT OWN MED DRAWER 7, Y5N ONE (05:15)
[2019-02-03] MEDS: BUDESONIDE/FORMETEROL FUMARATE 80/4.5 mcg INHALER IH SCH ×2 (09:51→21:34)
--- NOTE | 2019-02-03 11:51 | PN ---
Progress Note (short form) - Note Progress Note: PULMONARY SUBJECTIVE IMPROVEMENT VSS/AFEBRILE ANICTERIC MINIMAL SCATTERED BILATERAL EXP WHEEZE S1S2 BS+/PREG NO EDEMA MEDS REVIEWED A/E BRONCHIAL ASTHMA DURING CONTINUE CURRENT TREATMENT ANTICIPATE DISCHARGE 24-48 HOURS Ann Marie HINES MD Problem List - Problems (1) Asthma exacerbation Code(s): J45.901 - UNSPECIFIED ASTHMA WITH (ACUTE) EXACERBATION (2) Code(s): Z34.90 - ENCNTR FOR SUPRVSN OF NORMAL , UNSP, UNSP TRIMESTER
[2019-02-03] MEDS: MAG HYDROX/AL HYDROX/SIMETH 30 ML UNIT-DOSE CUP PO PRN (14:41)
[2019-02-03] MEDS ORDERED: LACTATED RINGERS SOLUTION 1,000 ML IV SCH (21:30)
--- NOTE | 2019-02-03 23:36 | PN ---
Progress Note, Physician History of Present Illness: Pt feeling slightly better - Current Medication List Current Medications: Active Medications Al Hydroxide/Mg Hydroxide (Mylanta Oral Suspension -) 30 ml PO Q8H PRN PRN Reason: INDIGESTION Last Admin: 02/03/19 14:41 Dose: 30 ml Albuterol Sulfate (Ventolin 0.083% Nebulizer Soln -) 1 amp NEB RQ4H ANTONIO Last Admin: 02/03/19 20:09 Dose: 1 amp Albuterol Sulfate (Ventolin 0.083% Nebulizer Soln -) 1 amp NEB Q1H PRN PRN Reason: SHORT OF BREATH/WHEEZING Budesonide/Formoterol Fumarate (Symbicort 80/4.5mcg -) 2 puff IH BID [facility] Last Admin: 02/03/19 21:34 Dose: 2 puff Lactated Ringer's (Lactated Ringers Solution) 1,000 mls @ 40 mls/hr IV ASDIR [facility] Last Admin: 02/03/19 21:33 Dose: 40 mls/hr Methylprednisolone Sodium Succinate (Solu-Medrol -) 40 mg IVPUSH Q6H-IV ANTONIO Last Admin: 02/03/19 21:33 Dose: 40 mg - Objective Vital Signs: Vital Signs Temperature 97.8 F 02/03/19 20:34 Pulse Rate 104 H 02/03/19 20:34 Respiratory Rate 18 02/03/19 20:43 Blood Pressure 132/58 L 02/03/19 20:34 O2 Sat by Pulse Oximetry (%) 97 02/01/19 14:19 HENT: Yes: WNL Neck: Yes: WNL, Supple Cardiovascular: Yes: WNL, Regular Rate and Rhythm Respiratory: Yes: Diminished Gastrointestinal: Yes: Normal Bowel Sounds, Abdomen, Obese Labs: CBC, BMP 02/02/19 06:30 02/02/19 06:30 Problem List - Problems (1) Asthma exacerbation Assessment/Plan: Cont IV steroids Cont inhalers Code(s): J45.901 - UNSPECIFIED ASTHMA WITH (ACUTE) EXACERBATION (2) 20 or more weeks gestation of Assessment/Plan: As per 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
[2019-02-04] MEDS: ALBUTEROL SO4 0.083% IH SOL 2.5 MG/3 ML VIAL.NEB. NEB SCH ×4 (00:03→11:23)
[2019-02-04] MEDS: methylPREDNISolone NA SUCC 40 MG/1 ML VIAL IVPUSH SCH ×3 (02:09→14:30)
[2019-02-04] MEDS: MAG HYDROX/AL HYDROX/SIMETH 30 ML UNIT-DOSE CUP PO PRN (09:13)
[2019-02-04] MEDS: BUDESONIDE/FORMETEROL FUMARATE 80/4.5 mcg INHALER IH SCH (09:13)
--- NOTE | 2019-02-04 11:08 | PN ---
Progress Note (short form) - Note Progress Note: PULMONARY States breathing is improved, still with residual cough. No fevers or chills. Vital Signs Period Temp Pulse Resp BP Sys/Taylor Pulse Ox Last 24 Hr 97.8 F-98.3 F 79-104 18-18 106-144/43-71 98 Gen: NAD at rest Heart: RRR Lung: decreased breath sounds at the bases, no wheezes Abd: soft, nontender Ext: no edema CBC, BMP 02/02/19 06:30 02/02/19 06:30 Active Medications Al Hydroxide/Mg Hydroxide (Mylanta Oral Suspension -) 30 ml PO Q8H PRN PRN Reason: INDIGESTION Last Admin: 02/04/19 09:13 Dose: 30 ml Albuterol Sulfate (Ventolin 0.083% Nebulizer Soln -) 1 amp NEB RQ4H ANTONIO Last Admin: 02/04/19 07:28 Dose: 1 amp Albuterol Sulfate (Ventolin 0.083% Nebulizer Soln -) 1 amp NEB Q1H PRN PRN Reason: SHORT OF BREATH/WHEEZING Budesonide/Formoterol Fumarate (Symbicort 80/4.5mcg -) 2 puff IH BID ANTONIO Last Admin: 02/04/19 09:13 Dose: 2 puff Lactated Ringer's (Lactated Ringers Solution) 1,000 mls @ 40 mls/hr IV ASDIR ANTONIO Last Admin: 02/03/19 21:33 Dose: 40 mls/hr Methylprednisolone Sodium Succinate (Solu-Medrol -) 40 mg IVPUSH Q6H-IV ANTONIO Last Admin: 02/04/19 09:13 Dose: 40 mg A/P Acute Asthma Exacerbation 6 months - can change steroids to PO prednisone 40mg daily and taper as outpt - inhaled bronchodilators, should be on Symbicort for rest of - DVT prophylaxis - can discharge from pulmonary standpoint on PO prednisone taper, standing Symbicort 160/4.5mcg 2 puffs BID, Albuterol PRN
[2019-02-04 13:53] VITALS: BP 113/61; PULSE 84; TEMP 98.1
== END 2019-02-04 15:12 | disposition home or self-care (01) | DRG 832 ==
LOC: JERFT 14:17 → JER 14:17 → JERBED 17:31 → OBSVTOIN 02-02 01:25 → J5S 02-02 02:05 → J7W 02-02 14:47
PROVIDERS: ADMIT Internal Medicine; ATTEND Internal Medicine
DX: O26.893 Other specified pregnancy related conditions, third trimester (principal); J45.901 Unspecified asthma with (acute) exacerbation; Z3A.28 28 weeks gestation of pregnancy; O99.213 Obesity complicating pregnancy, third trimester; E66.9 Obesity, unspecified; Z68.34 Body mass index [BMI] 34.0-34.9, adult
CPT/HCPCS: 36415; 80053; 81003; 85025; 87086; 87804; 93005; 93010; 94640; 99283-25; G0378